=== PATIENT | male | born 1940 | race Caucasian/White ===

== ENCOUNTER → 2016-05-04 | Outpatient (REF) ==
[~2016-05-04] MED LIST: ACET-654 PO; ALBU83IN INH; AMLO5TAB2 PO; BENZ200C44 PO; COLA100C PO; FEVE650S3 PR; FLON1SPR; GUAIDM5UD PO; KEPP250T5 PO; KEPP500T6 PO; LEVA500T PO; LIDO5OI TOP; MIRT1TAB PO; MUCI600T34 PO; POTA20TA PO; TYLE500T78 PO
--- NOTE | 2016-05-04 09:18 | REP ---
AP view left shoulder , 05/04 16 Indication: left shoulder pain, 76 year old male Findings: Moderate hypertrophic and osteoarthritic changes are noted at acromioclavicular joint. There is significant narrowing of acromioclavicular joint. There is no acute fracture or dislocation of the left shoulder. Visualized portions of the left scapula and the left clavicle are intact Impression: Moderate hypertrophic and osteoarthritic changes at acromioclavicular joint. Left shoulder without fracture or displacement. Signed by Krystal Aragon MD 05/04/2016 09:10 A
[2016-05-04 15:13] LABS: MEAN CORPUSCULAR HEMOGLOBIN 32.4 pg (27.0-33.0); MEAN CORPUSCULAR HGB CONC 33.2 g/dl (32.0-36.5); MEAN CORPUSCULAR VOLUME 97.5 fl (80.0-96.0); RED CELL DISTRIBUTION WIDTH 17.5 % (11.5-14.5); WHITE BLOOD COUNT 3.7 K/mm3 (4.0-10.0)
[2016-05-04 15:42] LABS: ANION GAP 9 MEQ/L (8-16); BLOOD UREA NITROGEN 20 MG/DL (7-18); CALCIUM LEVEL 8.8 MG/DL (8.8-10.2); CARBON DIOXIDE LEVEL 26 MEQ/L (21-32); CHLORIDE LEVEL 102 MEQ/L (98-107); CREATININE FOR GFR 1.16 MG/DL (0.70-1.30); GLOMERULAR FILTRATION RATE > 60.0 (>42); GLUCOSE, FASTING 104 MG/DL (83-110); POTASSIUM SERUM 3.9 MEQ/L (3.5-5.1); SODIUM LEVEL 137 MEQ/L (136-145)
== END ==
PROVIDERS: ATTEND Internal Medicine
DX: J18.9 Pneumonia, unspecified organism (principal)

== ENCOUNTER → 2016-05-08 | Outpatient (REF) ==
[2016-05-08 10:11] LABS: MEAN CORPUSCULAR HEMOGLOBIN 32.7 pg (27.0-33.0); MEAN CORPUSCULAR HGB CONC 32.7 g/dl (32.0-36.5); MEAN CORPUSCULAR VOLUME 99.9 fl (80.0-96.0); RED CELL DISTRIBUTION WIDTH 16.2 % (11.5-14.5); WHITE BLOOD COUNT 3.2 K/mm3 (4.0-10.0)
[2016-05-08 10:29] LABS: ANION GAP 10 MEQ/L (8-16); BLOOD UREA NITROGEN 19 MG/DL (7-18); CARBON DIOXIDE LEVEL 27 MEQ/L (21-32); CHLORIDE LEVEL 103 MEQ/L (98-107); GLOMERULAR FILTRATION RATE > 60.0 (>42); GLUCOSE, FASTING 100 MG/DL (83-110); MAGNESIUM LEVEL 1.9 MG/DL (1.8-2.4); POTASSIUM SERUM 3.6 MEQ/L (3.5-5.1); SODIUM LEVEL 140 MEQ/L (136-145)
== END ==
PROVIDERS: ATTEND Internal Medicine
DX: I10 Essential (primary) hypertension (principal)

== ENCOUNTER 2016-05-10 09:48 | Inpatient (IN) | payer MEDICARE, OTHER ==
[~2016-05-10] VITALS: Ht 177.8 cm; Wt 78.3 kg
--- NOTE | 2016-05-10 10:37 | REP ---
CT HEAD WITHOUT CONTRAST: HISTORY: Subdural hematoma. Areas of decreased attenuation are present in the periventricular white matter. This represents small vessel ischemic disease. There is no intraparenchymal hemorrhage or mass. The ventricular system and cortical sulci are dilated consistent with minimal volume loss. Cavum septi pellucidi and vergae are present. A chronic subdural hematoma 1 cm in width is present over the right cerebral hemisphere. A very small amount of re-bleeding is present. There is mass effect with minimal midline shift to the left. There is no fracture. The visualized sinuses are clear. IMPRESSION: 1. Small vessel ischemic disease. 2. Minimal volume loss. 3. There is a 1 cm chronic subdural hematoma over the right cerebral hemisphere with minimal midline shift to the left. Results were discussed with Dr. Rico at 10:15 a.m. this date. Signed by Robert Fernández MD 05/10/2016 10:47 A
[2016-05-10 10:51] LABS: ANION GAP 7 MEQ/L (8-16); BLOOD UREA NITROGEN 21 MG/DL (7-18); CALCIUM LEVEL 8.6 MG/DL (8.8-10.2); CARBON DIOXIDE LEVEL 26 MEQ/L (21-32); CHLORIDE LEVEL 105 MEQ/L (98-107); CREATININE FOR GFR 1.23 MG/DL (0.70-1.30); GLOMERULAR FILTRATION RATE > 60.0 (>42); GLUCOSE, FASTING 112 MG/DL (83-110); POTASSIUM SERUM 3.6 MEQ/L (3.5-5.1); SODIUM LEVEL 138 MEQ/L (136-145)
[2016-05-10 10:53] LABS: BASO % 0.4 % (0.0-1.0); EOS # 0.2 K/mm3 (0.0-0.50); EOS % 6.9 % (0.0-3.0); LARGE UNSTAINED CELL # 0.2 K/mm3 (0.0-0.4); LARGE UNSTAINED CELL % 6.3 % (0.0-4.0); LYMPH # 0.6 K/mm3 (1.5-4.5); LYMPH % 22.9 % (24.0-44.0); MEAN CORPUSCULAR HEMOGLOBIN 32.9 pg (27.0-33.0); MEAN CORPUSCULAR HGB CONC 33.3 g/dl (32.0-36.5); MEAN CORPUSCULAR VOLUME 98.7 fl (80.0-96.0); MONO # 0.2 K/mm3 (0.0-0.8); MONO % 8.2 % (0.0-5.0); NEUTROPHILS # 1.5 K/mm3 (1.8-7.7); NEUTROPHILS % 55.3 % (36.0-66.0); PLATELET COUNT, AUTOMATED 156 k/mm3 (150-450); RED CELL DISTRIBUTION WIDTH 16.5 % (11.5-14.5); WHITE BLOOD COUNT 2.6 K/mm3 (4.0-10.0)
--- NOTE | 2016-05-10 11:19 | REP ---
Clinical: Cough . Comparison: 06/24/2013 . Findings: The mediastinum and cardiac silhouette are stable and within normal limits for portable technique. The lung valencia are clear without acute consolidation, effusion, or pneumothorax. Chronic changes to the left base again noted. Skeletal structures are intact. Impression: No acute cardiopulmonary process identified. Signed by Mane Fraser MD 05/10/2016 11:11 A
[2016-05-10] MEDS ORDERED: ONDANSETRON 4MG/2ML VIAL (J2405) IV PRN (12:30)
[2016-05-10] MEDS ORDERED: ACETAMINOPHEN TAB 650MG DOSE (2X325MG) PO PRN (12:30)
[2016-05-10] MEDS ORDERED: KEPP250T5 PO (13:20)
[2016-05-10] MEDS ORDERED: MUCI600T34 PO (13:20)
[2016-05-10] MEDS ORDERED: LIDO5OI TOP (13:20)
[2016-05-10] MEDS ORDERED: MIRT1TAB PO (13:20)
[2016-05-10] MEDS ORDERED: KEPP500T6 PO (13:20)
[2016-05-10] MEDS ORDERED: POTA20TA PO (13:28)
[2016-05-10] MEDS ORDERED: AMLO5TAB2 PO (13:28)
[2016-05-10] MEDS ORDERED: FLON1SPR (13:28)
[2016-05-10] MEDS ORDERED: GUAIDM5UD PO (13:28)
[2016-05-10] MEDS ORDERED: COLA100C PO (13:28)
[2016-05-10] MEDS ORDERED: TYLE500T78 PO (13:28)
[2016-05-10] MEDS ORDERED: FEVE650S3 PR (13:28)
[2016-05-10] MEDS ORDERED: ALBU83IN INH (13:28)
[2016-05-10] MEDS ORDERED: BENZ200C44 PO (13:28)
[2016-05-10] MEDS ORDERED: ACET-654 PO (13:28)
[2016-05-10 13:29] LABS: ABG BASE EXCESS 1.3 (-2.0-2.0); ABG HCO3 24.7 MEQ/L (22.0-26.0); ABG PARTIAL PRESSURE CO2 34.3 mmHg (35.0-45.0); ABG STANDARD HCO3 25.7 MEQ/L (22.0-26.0); ABG TOTAL CO2 25.8 MEQ/L (23.0-31.0); ABG pH (ARTERIAL) 7.476 UNITS (7.350-7.450)
[2016-05-10] MEDS ORDERED: LEVA500T PO (13:30)
[2016-05-10] MEDS ORDERED: LIDOCAINE VISCOUS 2% SOLN 15ML UDC SS PRN (14:45)
[2016-05-10] MEDS ORDERED: LORazepam 2 MG/ML VIAL (J2060) IV PRN (14:45)
[2016-05-10] MEDS ORDERED: ACETAMINOPHEN 650 MG SUPP PR PRN (15:00)
[2016-05-10] MEDS ORDERED: ACETAMINOPHEN 325 MG TAB PO PRN (15:00)
--- NOTE | 2016-05-10 15:20 | REP ---
MRI BRAIN WITHOUT CONTRAST: HISTORY: Subdural hematoma. COMPARISON: CT 05/10/2016 Areas of increased signal intensity on T2-weighted images are present in the periventricular and subcortical white matter. This represents small vessel ischemic disease. There is no intraparenchymal hemorrhage, infarct, or mass. The ventricular system and cortical sulci are dilated consistent with minimal volume loss. A very small amount of intraventricular hemorrhage is present. Cavum septum pellucidi and vergae are present. A late subacute to early chronic subdural hematoma 1 cm in width is present over the right cerebral hemisphere. There is mass effect with minimal midline shift to the left. The sinuses are clear. IMPRESSION: 1. Small vessel ischemic disease. 2. Minimal volume loss. 3. There is a 1 cm late subacute to early chronic subdural hematoma over the right cerebral hemisphere with minimal midline shift to the left. Signed by Robert Fernández MD 05/10/2016 03:25 P
--- NOTE | 2016-05-10 15:46 | HPE ---
DATE OF ADMISSION: 05/10/2016 PRIMARY CARE PROVIDER: Dr. Reggie Hurley INPATIENT HOSPITALIST ATTENDING: Dr. Champ Smalls CHIEF COMPLAINT: Lethargy HISTORY OF PRESENT ILLNESS: A 76-year-old male DNR [facility] resident with history of Waldenstrom macroglobulinemia, follows with Dr. Gamble, was seen yesterday with ahistory of plasmapheresis for hyperviscosity, chemotherapy in 2009, formerly followed with Dr. Rand, repeat chemotherapy in August 2010, completed in fall 2010, bone marrow testing 2013 demonstrating progression and treated with six cycles of rituxan and Treanda with Neulasta support 07/04/2013, subdural hematoma secondary to a fall with midline shift on chronic Keppra for seizure prophylaxis , single episode of paroxysmal atrial fibrillation 12/22/2013 with no repeat episode, resting tremors, seasonal allergic rhinitis, hypercholesterolemia, hypertension, presents to the emergency room for evaluation of increasing somnolence and lethargy, altered mental status for the past few days. This past week, according to the family, the patient has had a 13-pound weight loss due to decreased appetite and decreased oral intake. He has been increasingly lethargic and somnolent but continued to take his Keppra. He otherwise denied any nausea, vomiting, abdominal pain, chest pain, pressure or tightness, shortness of breath, lightheadedness, fever, chills, upper or lower extremity numbness or tingling. Since his subarachnoid bleed 04/21/2016, the patient has had persistent weakness and deconditioning despite rehabilitation and continues to have left lower extremity weakness compared to the right lower extremity. Per the family, the patient is arousable but much more lethargic and obtunded. He is able to answer questions appropriately and appears to be oriented. Concerns for progression of Waldenstrom was raised as well as medication-induced lethargy. Repeat CT of the head in the emergency room (ER) shows stable chronic changes from previous subdural hematoma with a minimal midline shift to the left measuring 1 cm, appears to be old blood, small vessel ischemic disease and very minimal volume loss. Workup included CBC with chronic leukopenia and anemia and normal metabolic panel. Hospitalist service was called for admission for evaluation of the patient's lethargy, acute mental status change. PAST MEDICAL HISTORY: 1. Waldenstrom's macroglobulinemia. 2. Paroxysmal atrial fibrillation, one episode in 2013 with no repeat. 3. Seizures. 4. Subdural hematoma in March 2016. 5. T3 compression fracture. 6. Hypertension. 7. Hypercholesterolemia. 8. Retinal detachment repair, laser retinal surgery on the left. 9. Total hip replacement. 10. Seasonal allergic rhinitis. PAST SURGICAL HISTORY: 1. Colonoscopy in November 1998. 2. Retinal detachment repair, laser retinal surgery on the left 2008. 3. Total hip replacement secondary to injury on ice in March 2013. ALLERGIES: No known drug allergies. HOME MEDICATIONS: - Keppra 500 mg twice a day, currently changed to 250 in the morning and 500 in the evening - Norvasc 5 mg daily - potassium chloride 20 mEq daily - Levaquin 500 mg daily SOCIAL HISTORY: Former smoker of tobacco. 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 No alcohol use. Currently, DO NOT INTUBATE/DO NOT RESUSCITATE, prison resident. Healthcare proxy is daughter, Ayaka Campa, phone number [phone] and home number is [phone]. REVIEW OF SYSTEMS: Per the history of present illness. Twelve-point system otherwise negative. PHYSICAL EXAMINATION: VITAL SIGNS: Blood pressure 111/60, pulse 88, respiratory rate 18, temperature 100.3, 96% on two liters nasal cannula. GENERAL: The patient is lethargic but arousable. He answers questions appropriately. He is awake, alert, and oriented to time, place, and person. He stated that it is 2017, he is at [facility]. HEENT: Pupils are round and reactive. Extraocular muscles are intact. Normocephalic, atraumatic. The patient has a dry, beefy looking tongue with some mouth ulcers, non-vesicular. NECK: No jugular venous distention or thyromegaly. SKIN: The patient has some ecchymotic area around the right eye, right clavicle, anterior right upper chest, and right arm. LUNGS: Clear to auscultation. No wheezes, rales, or rhonchi. HEART: S1, S2, sinus rhythm. No murmurs, rubs, or gallops. ABDOMEN: Soft, nontender, nondistended. EXTREMITIES: No pitting edema. LABORATORY DATA: White count 2.6, hemoglobin 8.4, hematocrit 25, platelet count 156. Arterial blood gas: CO2 34, pH 7.4. Sodium 138, potassium 3.6, chloride 105, bicarbonate 26, BUN 21, creatinine 1.23 , glucose of 112, ammonia of 41, calcium of 8.6, levetiracetam level is pending. MICROBIOLOGY: Two sets of blood cultures are pending. IMAGING STUDIES: Chest x-ray shows no acute cardiopulmonary process. CT of the head shows chronic subdural hematoma 1 cm with minimal midline shift to the left, small vessel ischemic disease. MRI of the brain is pending. ASSESSMENT AND PLAN: This is a 76-year-old male with history of Waldenstrom macroglobulinemia, paroxysmal atrial fibrillation with single episode, not on anticoagulation or rate controlled medication, hypertension not on medication due to low blood pressures, hypercholesterolemia, subdural hematoma 04/21/2016 on seizure prophylaxis, compression fracture T3, retinal detachment, right total hip replacement secondary to slipping on some ice, presents to the emergency room with a few day of history of increasing somnolence thought to be secondary to Keppra. The patient had been started on Levaquin at the prison for a presumed pneumonia with chest x-ray being negative. He does have low-grade temperature. The patient will be admitted as inpatient for two midnights. Admitted to the hospitalist service, attending physician Dr. Champ Smalls for the following issues: 1. Acute encephalopathy, most likely multifactorial. The patient's Keppra will be held overnight until levels are available. Ativan as needed for breakthrough seizures. EEG in the morning. We will rule out metabolic causes. The patient's ammonia level is slightly elevated. We will give a small of lactulose and recheck levels in the morning. Arterial blood gas appears to be normal. Glucose is normal. CT of the brain is unremarkable. We will obtain an MRI of the brain to look for other etiology. Due to low-grade temperature, we will check urinalysis (UA), urine culture and sensitivity to rule out urinary tract infection as the cause for the patient's altered mental status. Dr. Gamble, oncology/florist supplies salesperson, has been consulted to rule out Waldenstrom macroglobulinemia progression causing confusion. We have discussed with the patient that plasmapheresis is not available at [facility] and they were agreeable to proceeding with admission. 2. Waldenstrom's macroglobulinemia. Dr. Tye sahu has been consulted for management. 3. Low-grade fever. We will obtain a panculture, UA, urine culture and sensitivity, influenza a and b rapid antigen. Chest x-ray is unremarkable. The patient denies any dysuria,urgency, or frequency. Pt has a chronic cough and has been given levaquin at the prison, which we will continue until cultures are negative. 4. Chronic leukopenia and anemia, stable. No acute indication for red blood cell transfusion. 5. 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 appears to be stable on repeat CT. Neurologic checks every four hours.Pt and family have requested discontinuation of keppra. Per neurologist incident response engineer, dr. Braakat, alternatives will be vimpat or dilantin. 6. History of seizures status post chronic subdural hematoma. Ativan as needed. The patient's family and the patient have requested discontinuation of the Keppra due to increased sedation. EEG in the morning. Vimpat or dilantin as alternative if EEG suggestive of epilepsy. Ok to be off AED for the next 24hrs per neurology, Dr. Barakat who will see the patient in consult. 7. Mouth ulcers. Viscous lidocaine as needed, Magic mouthwash. 8. Hypertension. Currently on no medications due to low blood pressure. 9. Hypercholesterolemia. Check lipid profile in the morning. 10. Compression fracture, stable. No complaints of pain at this time. 11. History of paroxysmal atrial fibrillation. Currently in sinus rhythm. 12. Deep vein thrombosis (DVT) prophylaxis with compression stockings. Avoid anticoagulants due to history of subdural hematoma. The patient will be assigned to Dr. Champ Smalls at 10:00 p.m. on 03/10/2017 and he will assume care of this patient on 05/11/2016 at 7:00 a.m. SIXTO
[2016-05-10 16:00] VITALS: BP 136/75
[2016-05-10] MEDS ORDERED: ACETAMINOPHEN 500 MG TAB PO SCH (16:00)
[2016-05-10] MEDS ORDERED: LACTULOSE 20 GM/30 ML SYRUP UD PO ONE (16:00)
[2016-05-10] MEDS: ALBUTEROL SULFATE 2.5 MG/0.5 ML INH NEB SOLN INH SCH ×2 (17:00→20:59)
[2016-05-10] MEDS ORDERED: LIDOCAINE 5% OINT 30 GM TOP SCH (17:00)
[2016-05-10] MEDS: MAGIC MOUTHWASH SUSPENSION BTL SSP SCH (17:30)
[2016-05-10 19:45] VITALS: BP 131/77
--- NOTE | 2016-05-10 19:56 | EDDOCDS ---
Physician Documentation [facility] Name: Sebastián Manning Age: 76 yrs Sex: Male : 1940 Arrival Date: 05/10/2016 Time: 09:48 Bed 20 Private MD: Disposition: 05/10 12:19 Critical Care: Critical care not applicable. pc Disposition: 05/10/16 12:23 Hospitalization ordered by Shruti Villavicencio for Inpatient Admission. Preliminary diagnosis are Altered mental status, unspecified, Adverse effect of other antiepileptic and sedative-hypnotic drugs, Traumatic subdural hemorrhage - resolving, Waldenstr m macroglobulinemia. - Bed requested for PCU. - Status is Inpatient Admission. mgs - Condition is Stable. - Problem is new. - Symptoms have improved. HPI: 11:34 This 76 yrs old Male presents to ER via Ambulance with complaints of Altered pc Mental Status. 11:34 The history is obtained from the patient, the patient's family/friend, [facility]. He has been increasingly tired, with a cough and poor oral intake for a few days. He had a fall with a SDH weeks ago, admitted to [facility] for observation and stable since . He was sent for evaluation, with concerns for hyperviscosity due to his Waldenstrom's. Historical: - Allergies: no known allergies; - Home Meds: 1. Keppra 500 mg oral tab 1 tab 2 times per day (Last dose: 05/10/2016 08:00) 2. Norvasc 5 mg Oral tab 1 tab once daily (Last dose: 05/10/2016 08:00) 3. potassium chloride 20 mEq Oral TbER 1 tab once daily (Last dose: 05/10/2016 08:00) 4. Levaquin 500 mg Oral tab 1 tab once daily (Last dose: 05/10/2016 08:00) - PMHx: Waldenstrom Macroglobulinemia; Atrial Fib; Seizures; Subarachnoid Bleed (April 21, 2016); compression Fx T3; Hypertension; - PSHx: Colonoscopy; retinal reattachment; right total hip; - The history from nurses notes was reviewed: and I agree with what is documented. - Social history: Smoking status: Patient states former smoker of tobacco. No barriers to communication noted, Speaks appropriately for age. - : The pt / caregiver states he / she is not on anticoagulants. Home medication list is obtained from the facility MAR. - Exposure Risk Screening:: None identified. - Immunization history:: All immunizations up-to-date. - Family history: Not pertinent. - Social history:: the patient is a non-smoker, the patient does not drink alcohol. ROS: 11:34 hard of hearing. pc 11:34 All systems are negative except as listed. Exam: 11:34 General Appearance: lethargic. pc 11:34 EENT: normal eye inspection, ears, nose and throat normal, mucous membranes dry. 11:34 Neck: The exam reveals no acute abnormalities. ROM is normal and painless. No nuchal rigidity is noted.. 11:34 Respiratory: no respiratory distress, normal breath sounds. 11:34 CVS: regular pulse rate, regular rhythm, normal S1 and S2, no murmurs, strong peripheral pulses. 11:34 Abdomen: soft, non-tender, no organomegaly, normal bowel sounds. 11:34 Back: normal inspection. 11:34 Skin: skin color is normal, warm, dry. 11:34 Extremities: multiple areas of ecchymosis . 11:34 Neuro: oriented x 3, cranial nerves normal as tested, no motor deficits, no sensory deficits. Vital Signs: 09:57 BP 111 / 60; Pulse 88; Resp 18; Temp 100.3(TE); Pulse Ox 96% on 2 lpm NC; Pain 0/10; dem1 MDM: 09:52 CT Head Without Contrast Ordered. EDMS 09:56 IV Saline Lock ordered. pc 09:57 CBC with Diff Ordered. EDMS 09:57 MED Profile Ordered. EDMS 10:17 Data reviewed: The patient's [facility] records were accessed, as they were informed. pc 10:30 -Blood Culture (Adults Only), peripheral from different site, or from device/port/PICC pc etc. if present ordered. 10:31 Chest, 1 View Ordered. EDMS 10:32 -Blood Culture Ordered. EDMS 10:34 -Blood Culture (Adults Only), peripheral from different site, or from device/port/PICC deg etc. if present complete. 10:35 BLOOD CULTURES Ordered. EDMS 11:15 CBC with Diff Reviewed. pc 11:15 MED Profile Reviewed. pc 11:15 CT Head Without Contrast Reviewed. pc 11:34 Differential Diagnosis: AMS; dehydration; on Keppra; recent SDH. Plan: CT, CXR, labs. pc 12:18 [place] [place] was scanned into [employer] and attached to record. jp5 12:18 Financial registration complete. jp5 12:18 Data reviewed: old medical records, vital signs, nurses notes, EKG(s), lab test pc results, all radiology studies and available results. 12:19 Keppra (short red top tube) Ordered. EDMS 12:19 ECG WITH READING ER PHYS+CARDIAG ordered. EDMS 12:19 Test interpretation: LAB - all labs as ordered have been reviewed, interpreted and pc considered in the overall management of the clinical presentation; X-RAY - interpreted by Radiologist and personally reviewed, 1 view chest no acute disease, interpreted by Radiologist and personally reviewed, discussed with Radiologist, Head CT; resolving right SDH with no change to midline shift. Physician consultation: Dr. Jacky Gibson regarding patient's condition, and he agrees with the CT reading and will see in consult if Hospitalist requests. 12:19 Physician consultation: Dr. Omi Gamble regarding patient's condition, and he advises pc that hydrating overnight, withholding Keppra and if no change, will require transfer for plasmapheresis . 12:19 The patient has been re-examined and re-evaluated. The patient's symptoms have mildly pc improved after treatment. Physician consultation: Dr. Shruti Villavicencio was contacted at 12:21, regarding admission. Disposition: The historical points, examination findings, and any diagnostic results supporting the provided diagnosis, were discussed with the patient or legal guardian. The need for further work-up and/or treatment in the hospital was explained. 12:21 BED REQUEST+ADM ordered. EDMS 12:22 NS 0.9% 500 ml IV at bolus once ordered. pc 12:26 AMMONIA Ordered. EDMS 12:26 ARTERIAL BLOOD GAS Ordered. EDMS 12:26 MRI Brain without Contrast Ordered. EDMS 12:29 Test interpretation: EKG. pc 12:46 PHYSICAL THERAPY EVAL & TREAT ordered. EDMS 12:46 Admission / Observation Status ordered. EDMS 12:47 NPO DIET ordered. EDMS 12:48 URINALYSIS Ordered. EDMS 14:42 URINALYSIS Ordered. EDMS 14:42 URINE CULTURE Ordered. EDMS 15:01 PROLACTIN Ordered. EDMS 15:52 INFLUENZA A&B RAPID ANTIGEN Ordered. EDMS 19:31 BASIC METABOLIC PROFILE Ordered. EDMS 19:31 CBC WITH DIFFERENTIAL Ordered. EDMS EC:29 Rate is 80 beats/min. Rhythm is regular, Normal Sinus Rhythm with 1st degree heart pc block. Left axis deviation noted. QRS is negative in leads II, aVF. MI interval is normal. QRS interval is normal. QT interval is normal. No Q waves. T waves are Normal. Clinical impression: Normal Sinus Rhythm and 1st degree heart block. Administered Medications: 12:33 Drug: NS 0.9% 500 ml [sodium chloride 0.9 % intravenous solution] Route: IV; Rate: ml6 bolus; Site: left antecubital; 14:45 Follow up: IV Status: Completed infusion; Infusion discontinued; IV Intake: 500ml ml6 Signatures: Dispatcher [employer] EDNV Kyle Rico MD MD pc Murray, Denise, Reservations Manager Unit deg Zeeshan Oseguera RN RN dwg Lowe, Matthew, RN RN ml6 Zev Cervantes,Treasure Luz RN jp5 The chart was reviewed and I authenticate all verbal orders and agree with the evaluation and treatment provided.Attachments: 12:18 [facility] Payment Agreement [email or web address]
--- NOTE | 2016-05-10 19:56 | EDDOCDS ---
Nurse's Notes [facility] Name: Sebastián Manning Age: 76 yrs Sex: Male : 1940 Arrival Date: 05/10/2016 Time: 09:48 Bed 20 Private MD: Diagnosis: Altered mental status, unspecified;Adverse effect of other antiepileptic and sedative-hypnotic drugs;Traumatic subdural hemorrhage-resolving;Waldenstr m macroglobulinemia Presentation: 05/10 09:57 Presenting complaint: EMS states: sent from [facility] due to increased lethargy. Adult Sepsis ml6 Screening: The patient does not have new or worsening altered mentation. Patient's respiratory rate is less than 22. Systolic blood pressure is greater than 100. Patient has a qSOFA score of 0- Negative Sepsis Screen. Suicide/Homicide risk assessment- the patient denies having any suicidal and/or homicidal ideations and does not present with any other emotional, behavioral or mental health complaints. 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 Transition of care: patient was not received from another setting of care. 09:57 Acuity: AMA Level 3 ml6 09:57 Method Of Arrival: Ambulance ml6 Triage Assessment: 09:57 General: Appears in no apparent distress, Behavior is appropriate for age, cooperative. ml6 Pain: Denies pain. The patient is triaged at the bedside. See Assessment in Nurses Notes section of ED record. Neurological: Level of Consciousness is awake, alert, Oriented to person, place, Cigarette Filter Inspector are equal bilaterally Moves all extremities. Speech is normal, Facial symmetry appears normal, Pupils are PERRLA. Cardiovascular: No deficits noted. Capillary refill < 3 seconds is brisk in bilateral fingers toes Heart tones S1 S2 present. Respiratory: No deficits noted. Airway is patent Respiratory effort is even, unlabored, Respiratory pattern is regular, symmetrical, Breath sounds are clear bilaterally. GI: No deficits noted. Abdomen is flat, non- distended. : No deficits noted. Historical: - Allergies: no known allergies; - Home Meds: 1. Keppra 500 mg oral tab 1 tab 2 times per day (Last dose: 05/10/2016 08:00) 2. Norvasc 5 mg Oral tab 1 tab once daily (Last dose: 05/10/2016 08:00) 3. potassium chloride 20 mEq Oral TbER 1 tab once daily (Last dose: 05/10/2016 08:00) 4. Levaquin 500 mg Oral tab 1 tab once daily (Last dose: 05/10/2016 08:00) - PMHx: Waldenstrom Macroglobulinemia; Atrial Fib; Seizures; Subarachnoid Bleed (April 21, 2016); compression Fx T3; Hypertension; - PSHx: Colonoscopy; retinal reattachment; right total hip; - The history from nurses notes was reviewed: and I agree with what is documented. - Social history: Smoking status: Patient states former smoker of tobacco. No barriers to communication noted, Speaks appropriately for age. - : The pt / caregiver states he / she is not on anticoagulants. Home medication list is obtained from the facility JUN. - Exposure Risk Screening:: None identified. - Immunization history:: All immunizations up-to-date. - Family history: Not pertinent. - Social history:: the patient is a non-smoker, the patient does not drink alcohol. Screenin:28 Screening information is obtained from the patient. Fall risk: At risk due to age. ml6 Assistance ADL's: requires no assistance with activities of daily living. Abuse/DV Screen: The patient / caregiver reports he/she is: not in a situation that causes fear, pain or injury. Nutritional screening: No deficits noted. Advance Directives: Currently, there is no health care proxy. home support is adequate. Assessment: 09:57 General: see triage assessment'. ml6 11:00 Reassessment: Patient appears in no apparent distress at this time. Patient denies pain ml6 at this time. Patient states feeling better. Patient states symptoms have improved. patient sleeping intermittently, states fatigue, denies pain or discomfort, family at bedside awaiting test result. 11:00 Derm: Bruising that is dark purple, yellow, on right eye, right clavicle, anterior ml6 aspect of right upper chest and right arm. 12:00 Reassessment: Patient appears in no apparent distress at this time. Patient denies pain ml6 at this time. Patient states feeling better. Patient states symptoms have improved. patient sleeping, agitation noticeably reduced. 13:00 General: Appears in no apparent distress, Behavior is appropriate for age, cooperative. ml6 Pain: Denies pain. Neurological: No deficits noted. Level of Consciousness is awake, alert, Oriented to person, place, time. Cardiovascular: No deficits noted. Capillary refill < 3 seconds is brisk in bilateral fingers toes. Respiratory: No deficits noted. 14:00 Reassessment: Patient appears in no apparent distress at this time. Patient denies pain ml6 at this time. Patient states feeling better. Patient states symptoms have improved. patient sleeping soundly resp unlabored. 19:52 General: Appears in no apparent distress, Behavior is appropriate for age, cooperative. mgs Pain: Denies pain. Neurological: Level of Consciousness is awake, alert, Oriented to person, place, time, Cigarette Filter Inspector are equal bilaterally Moves all extremities. Speech is normal, Facial symmetry appears normal, Pupils are PERRLA. Cardiovascular: Capillary refill < 3 seconds. Respiratory: Airway is patent Respiratory effort is even, unlabored, Respiratory pattern is regular, symmetrical. Derm: Bruising that is yellow, on right eye. Vital Signs: 09:57 BP 111 / 60; Pulse 88; Resp 18; Temp 100.3(TE); Pulse Ox 96% on 2 lpm NC; Pain 0/10; dem1 Vitals: 09:57 Log In Time N/A - ambulance arrival. [facility] ED Course: 09:49 Patient visited by Emely Cain, Encyclopedia Research Worker. deg 09:49 Patient moved to Waiting deg 09:50 Kyle Rico MD is Attending Physician. pc 09:50 Patient moved to 10 [facility] 09:58 Triage Initiated ml6 09:58 Pt greeted and oriented to ED. Patient advised of names of staff involved in care, [facility] location of call russo, wait times and NPO status. Patient has correct armband on for positive identification. Placed in gown. Bed in low position. Call light in reach. Side rails up X2. engine monitor on. Pulse ox on. NIBP on. 09:59 Patient visited by Howard Barragan. dem1 10:06 Patient visited by Kyle Rico MD. pc 10:08 Inserted peripheral IV: 20gauge IV in left antecubital area and blood collected. ml6 Patient tolerated the procedure well. No procedures done that require assistance. Labs drawn. (by ED staff). Sent per order to lab. 10:31 MED Profile Sent. ml6 10:31 CBC with Diff Sent. ml6 10:34 Patient visited by Zev Fraser RN. ml6 11:02 CT Head Without Contrast Returned. EDMS 11:04 Patient visited by Zev Fraser, DIMA. ml6 11:30 Patient visited by Zev Fraser, DIMA. ml6 11:41 Chest, 1 View Returned. EDMS 12:08 Patient visited by Alma Oakes PCA. ls3 12:18 [facility] Payment Agreement was scanned into DearJane and attached to record. jp5 12:23 Shruti Villavicencio is Hospitalizing Provider. pc 12:26 Patient visited by Bettina Hernandez PCA. ct3 12:26 EKG done. (by ED staff). Reviewed by Kyle Rico MD. ct3 13:08 Patient moved to Admit Hold jo3 13:27 ARTERIAL BLOOD GAS Sent. cs15 14:03 Patient moved to MRI ml6 14:59 Patient moved to Admit Hold dwg 15:59 MRI Brain without Contrast Returned. EDMS 18:49 Inserted. nr1 19:00 Patient moved to 20 dwg 19:02 Patient visited by Kaleb Cosby PCA. kb5 19:45 Zev Cervantes,DIMA is Primary Nurse. mgs 19:52 The patient / caregiver is instructed regarding the plan of care and ED course. mgs Administered Medications: 12:33 Drug: NS 0.9% 500 ml [sodium chloride 0.9 % intravenous solution] Route: IV; Rate: ml6 bolus; Site: left antecubital; 14:45 Follow up: IV Status: Completed infusion; Infusion discontinued; IV Intake: 500ml ml6 Intake: 14:45 IV: 500.00ml; Total: 500.00ml. ml6 RT: 13:27 ABG's drawn from left radial artery allens test done and positive pressure held for 5 cs15 minutes no bleeding noted pressure bandage applied specimen sent pt. tolerated well. Order Results: Lab Order: CBC with Diff; SPEC'M 05/10/16 10:25 Test: WHITE BLOOD COUNT; Value: 2.6; Range: 4.0-10.0; Abnormal: Below low normal; Units: K/mm3; Status: F Test: RED BLOOD COUNT; Value: 2.54; Range: 4.30-6.10; Abnormal: Below low normal; Units: M/mm3; Status: F Test: HEMOGLOBIN; Value: 8.4; Range: 14.0-18.0; Abnormal: Below low normal; Units: g/dl; Status: F Test: HEMATOCRIT; Value: 25.1; Range: 42.0-52.0; Abnormal: Below low normal; Units: %; Status: F Test: MEAN CORPUSCULAR VOLUME; Value: 98.7; Range: 80.0-96.0; Abnormal: Above high normal; Units: fl; Status: F Test: MEAN CORPUSCULAR HEMOGLOBIN; Value: 32.9; Range: 27.0-33.0; Units: pg; Status: F Test: MEAN CORPUSCULAR HGB CONC; Value: 33.3; Range: 32.0-36.5; Units: g/dl; Status: F Test: RED CELL DISTRIBUTION WIDTH; Value: 16.5; Range: 11.5-14.5; Abnormal: Above high normal; Units: %; Status: F Test: PLATELET COUNT, AUTOMATED; Value: 156; Range: 150-450; Units: k/mm3; Status: F Test: NEUTROPHILS %; Value: 55.3; Range: 36.0-66.0; Units: %; Status: F Test: LYMPH %; Value: 22.9; Range: 24.0-44.0; Abnormal: Below low normal; Units: %; Status: F Test: MONO %; Value: 8.2; Range: 0.0-5.0; Abnormal: Above high normal; Units: %; Status: F Test: EOS %; Value: 6.9; Range: 0.0-3.0; Abnormal: Above high normal; Units: %; Status: F Test: BASO %; Value: 0.4; Range: 0.0-1.0; Units: %; Status: F Test: LARGE UNSTAINED CELL %; Value: 6.3; Range: 0.0-4.0; Abnormal: Above high normal; Units: %; Status: F Test: NEUTROPHILS #; Value: 1.5; Range: 1.8-7.7; Abnormal: Below low normal; Units: K/mm3; Status: F Test: LYMPH #; Value: 0.6; Range: 1.5-4.5; Abnormal: Below low normal; Units: K/mm3; Status: F Test: MONO #; Value: 0.2; Range: 0.0-0.8; Units: K/mm3; Status: F Test: EOS #; Value: 0.2; Range: 0.0-0.50; Units: K/mm3; Status: F Test: BASO #; Value: 0.0; Range: 0.0-0.2; Units: K/mm3; Status: F Test: LARGE UNSTAINED CELL #; Value: 0.2; Range: 0.0-0.4; Units: K/mm3; Status: F Lab Order: MED Profile; SPEC'M 05/10/16 10:25 Test: GLUCOSE, FASTING; Value: 112; Range: 83-110; Abnormal: Above high normal; Units: MG/DL; Status: F Test: BLOOD UREA NITROGEN; Value: 21; Range: 7-18; Abnormal: Above high normal; Units: MG/DL; Status: F Test: CREATININE FOR GFR; Value: 1.23; Range: 0.70-1.30; Units: MG/DL; Status: F Test: GLOMERULAR FILTRATION RATE; Value: > 60.0; Range: >42; Status: F Test: SODIUM LEVEL; Value: 138; Range: 136-145; Units: MEQ/L; Status: F Test: POTASSIUM SERUM; Value: 3.6; Range: 3.5-5.1; Units: MEQ/L; Status: F Test: CHLORIDE LEVEL; Value: 105; Range: 98-107; Units: MEQ/L; Status: F Test: CARBON DIOXIDE LEVEL; Value: 26; Range: 21-32; Units: MEQ/L; Status: F Test: ANION GAP; Value: 7; Range: 8-16; Abnormal: Below low normal; Units: MEQ/L; Status: F Test: CALCIUM LEVEL; Value: 8.6; Range: 8.8-10.2; Abnormal: Below low normal; Units: MG/DL; Status: F Test Note: ; Units are mL/min/1.73 m2 Chronic Kidney Disease Staging per NKF: Stage I & II GFR >=60 Normal to Mildly Decreased Stage III GFR 30-59 Moderately Decreased Stage IV GFR 15-29 Severely Decreased Stage V GFR <15 Very Little GFR Left ESRD GFR <15 on WORK CHECKER Lab Order: AMMONIA; SPEC'05/10/16 13:33 Test: AMMONIA; Value: 41; Range: <32; Abnormal: Above high normal; Units: uMOL/L; Status: F Lab Order: ARTERIAL BLOOD GAS; SPEC'M 05/10/16 13:25 Test: ABG pH (ARTERIAL); Value: 7.476; Range: 7.350-7.450; Abnormal: Above high normal; Units: UNITS; Status: F Test: ABG PARTIAL PRESSURE CO2; Value: 34.3; Range: 35.0-45.0; Abnormal: Below low normal; Units: mmHg; Status: F Test: ABG PARTIAL PRESSURE O2; Value: 106.0; Range: 75.0-100.0; Abnormal: Above high normal; Units: mmHg; Status: F Test: ABG TOTAL CO2; Value: 25.8; Range: 23.0-31.0; Units: MEQ/L; Status: F Test: ABG HCO3; Value: 24.7; Range: 22.0-26.0; Units: MEQ/L; Status: F Test: ABG BASE EXCESS; Value: 1.3; Range: -2.0-2.0; Status: F Test: ABG STANDARD HCO3; Value: 25.7; Range: 22.0-26.0; Units: MEQ/L; Status: F Test: ABG O2 SATURATION; Value: 98.2; Range: 95.0-99.0; Units: %; Status: F Lab Order: PROLACTIN; SPEC'M 05/10/16 10:25 Test: PROLACTIN; Value: 8.3; Range: 2.1-17.7; Units: NG/ML; Status: F Radiology Order: CT Head Without Contrast Test: CT Head Without Contrast REASON FOR EXAMINATION: SDH; CT HEAD WITHOUT CONTRAST:; ; HISTORY: Subdural hematoma.; ; Areas of decreased attenuation are present in the periventricular white matter.; This represents small vessel ischemic disease. There is no intraparenchymal; hemorrhage or mass. The ventricular system and cortical sulci are dilated; consistent with minimal volume loss. Cavum septi pellucidi and vergae; are present. A chronic subdural hematoma 1 cm in width is present over the; right cerebral hemisphere. A very small amount of re-bleeding is present. There; is mass effect with minimal midline shift to the left. There is no fracture.; The visualized sinuses are clear.; ; IMPRESSION:; ; 1. Small vessel ischemic disease.; ; 2. Minimal volume loss.; ; 3. There is a 1 cm chronic subdural hematoma over the right cerebral hemisphere; with minimal midline shift to the left.; ; Results were discussed with Dr. Rico at 10:15 a.m. this date.; ; ; Signed by; Robert Fernández MD 05/10/2016 10:47 A; Radiology Order: Chest, 1 View Test: Chest, 1 View REASON FOR EXAMINATION: Cough; Clinical: Cough .; ; Comparison: 06/24/2013 .; ; Findings:; The mediastinum and cardiac silhouette are stable and within normal limits for; portable technique. The lung valencia are clear without acute consolidation,; effusion, or pneumothorax. Chronic changes to the left base again noted.; Skeletal structures are intact.; ; Impression:; No acute cardiopulmonary process identified.; ; ; Signed by; Mane Fraser MD 05/10/2016 11:11 A; Radiology Order: MRI Brain without Contrast Test: MRI Brain without Contrast REASON FOR EXAMINATION: somnolence SDH waldenstrom's macrogammaglobulinemia; MRI BRAIN WITHOUT CONTRAST:; ; HISTORY: Subdural hematoma.; ; COMPARISON: CT 05/10/2016; ; Areas of increased signal intensity on T2-weighted images are present in the; periventricular and subcortical white matter. This represents small vessel; ischemic disease. There is no intraparenchymal hemorrhage, infarct, or mass. The; ventricular system and cortical sulci are dilated consistent with minimal volume; loss. A very small amount of intraventricular hemorrhage is present. Cavum septum; pellucidi and vergae are present. A late subacute to early chronic subdural; hematoma 1 cm in width is present over the right cerebral hemisphere. There is; mass effect with minimal midline shift to the left. The sinuses are clear.; ; IMPRESSION:; ; 1. Small vessel ischemic disease.; ; 2. Minimal volume loss.; ; 3. There is a 1 cm late subacute to early chronic subdural hematoma over the; right cerebral hemisphere with minimal midline shift to the left.; ; ; Signed by; Robert Fernández MD 05/10/2016 03:25 P; Outcome: 12:23 Decision to Hospitalize by Provider. pc 19:51 Discharge Assessment: Patient awake, alert and oriented x 3. No cognitive and/or mgs functional deficits noted. Patient verbalized understanding of disposition instructions. patient administered narcotics - no. The following High Risk Discharge criteria are identified: None. Admitted to PCU accompanied by nurse, accompanied by tech, family with patient, via stretcher, on monitor, with chart. Condition: stable. CT Study completed. Property sent home with patient. 19:54 Patient left the ED. mgs Signatures: Dispatcher [employer] EDMS Kyle Rico MD MD pc Emely Cain, Encyclopedia Research Worker Unit deg Zeeshan Oseguera, RN RN Frannie Vance, RN RN [facility] Nikkie Owusu,RN RN jo3 Kaleb Cosby, FUNCTIONAL MENTAL DISABILITY TEACHER FUNCTIONAL MENTAL DISABILITY TEACHER kb5 Zev Fraser, RN RN ml6 Bettina Hernandez, FUNCTIONAL MENTAL DISABILITY TEACHER FUNCTIONAL MENTAL DISABILITY TEACHER ct3 Steven Barragania dem1 Zev Cervantes,DIMA CH mgs Kirti AndersonRN RN nr1 Treasure Garcia jp5 Alma Oakes, FUNCTIONAL MENTAL DISABILITY TEACHER FUNCTIONAL MENTAL DISABILITY TEACHER ls3 Jorge Pérez,RT RT cs15 Corrections: (The following items were deleted from the chart) 11:30 11:00 Reassessment: Patient appears in no apparent distress at this time. Patient ml6 denies pain at this time. Patient states feeling better. Patient states symptoms have improved. patient sleeping intermittently, states fatigue, denies pain or discomfort, family at bedside awaiting test result. ml6 MTDD
[2016-05-10 20:13] VITALS: BP 144/75
[2016-05-10] MEDS ORDERED: D5W/0.45% SODIUM CHLORIDE 1,000 ML IV SCH (21:00)
[2016-05-10] MEDS: guaiFENesin ER 600 MG TAB PO SCH (21:55)
[2016-05-10] MEDS: DOCUSATE SODIUM 100 MG CAP PO SCH (21:55)
[2016-05-10 23:59] VITALS: BP 124/73
[2016-05-11] MEDS ORDERED: SLF 3 ML SYR IV PRN (02:00)
[2016-05-11 04:46] VITALS: BP 114/73
[2016-05-11] MEDS: LevoFLOXacin 500 MG TABLET PO SCH (05:13)
[2016-05-11] MEDS: SODIUM CHLORIDE NASAL 0.65% SPRAY BTL (OCEAN) PRN (05:16)
[2016-05-11] MEDS: SLF 3 ML SYR IV SCH ×3 (05:17→21:27)
[2016-05-11 06:12] LABS: ANION GAP 8 MEQ/L (8-16); BLOOD UREA NITROGEN 18 MG/DL (7-18); CALCIUM LEVEL 8.5 MG/DL (8.8-10.2); CARBON DIOXIDE LEVEL 25 MEQ/L (21-32); CHLORIDE LEVEL 105 MEQ/L (98-107); GLOMERULAR FILTRATION RATE > 60.0 (>42); GLUCOSE, FASTING 107 MG/DL (83-110); POTASSIUM SERUM 3.5 MEQ/L (3.5-5.1); SODIUM LEVEL 138 MEQ/L (136-145)
[2016-05-11 06:15] LABS: BASO % 0.7 % (0.0-1.0); EOS # 0.2 K/mm3 (0.0-0.50); LARGE UNSTAINED CELL # 0.3 K/mm3 (0.0-0.4); LYMPH # 1.3 K/mm3 (1.5-4.5); LYMPH % 31.5 % (24.0-44.0); MEAN CORPUSCULAR HEMOGLOBIN 31.5 pg (27.0-33.0); MEAN CORPUSCULAR HGB CONC 31.8 g/dl (32.0-36.5); MEAN CORPUSCULAR VOLUME 99.1 fl (80.0-96.0); MONO # 0.2 K/mm3 (0.0-0.8); MONO % 5.6 % (0.0-5.0); NEUTROPHILS # 1.6 K/mm3 (1.8-7.7); NEUTROPHILS % 48.3 % (36.0-66.0); PLATELET COUNT, AUTOMATED 157 k/mm3 (150-450); RED CELL DISTRIBUTION WIDTH 17.7 % (11.5-14.5); WHITE BLOOD COUNT 3.2 K/mm3 (4.0-10.0)
[2016-05-11 06:47] LABS: ALBUMIN 1.9 GM/DL (3.2-5.2); ALBUMIN/GLOBULIN RATIO 0.25 (1.00-1.93); ALKALINE PHOSPHATASE 79 U/L (45-117); ALT/SGPT 30 U/L (12-78); AST/SGOT 13 U/L (15-37); BILIRUBIN,TOTAL 0.4 MG/DL (0.2-1.0); TOTAL PROTEIN 9.4 GM/DL (6.4-8.2)
--- NOTE | 2016-05-11 07:24 | ECGEPIP ---
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
[2016-05-11] MEDS: ALBUTEROL SULFATE 2.5 MG/0.5 ML INH NEB SOLN INH SCH ×4 (07:38→20:25)
[2016-05-11 08:00] VITALS: BP 96/58
[2016-05-11] MEDS: amLODIPine 5 MG TAB PO SCH (09:00)
[2016-05-11] MEDS: MAGIC MOUTHWASH SUSPENSION BTL SSP SCH ×3 (09:07→17:51)
[2016-05-11] MEDS: FLUTICASONE PROP 0.05% NASAL SPRAY 16 GM (FLONASE) SCH (09:09)
[2016-05-11] MEDS: DOCUSATE SODIUM 100 MG CAP PO SCH ×2 (09:09→21:27)
[2016-05-11] MEDS: guaiFENesin ER 600 MG TAB PO SCH ×2 (09:10→21:27)
[2016-05-11 12:00] VITALS: BP 110/62
[2016-05-11 13:19] LABS: IMMUNOGLOBULIN G 273 MG/DL (681-1648); IMMUNOGLOBULIN M 5260 MG/DL (40-230)
--- NOTE | 2016-05-11 13:24 | CR ---
DATE OF CONSULTATION: 05/11/2016 CONSULTING PHYSICIAN: Dr. 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 HISTORY OF PRESENT ILLNESS: Sebastián Manning is a 76-year-old gentleman with a history of Waldenstrom's macroglobulinemia. He was treated in the past by Dr. Rand in October 2008 with cladribine. Upon relapse in January 2010, he was treated with rituxan, Cytoxan and dexamethasone. He had a second remission which lasted for two years. 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 Immunohistochemical stains for B-cell showed 60-70% involvement. 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 He was then treated with six cycles of rituxan and bendamustine which he completed in November 2013. When I started seeing him and following his counts, he was noted to have hemoglobin of 11, platelet count 175,000 and white count of 4400. Creatinine was 1. His serum protein electrophoresis showed a M-spike of 2.6 grams/dL in mid gamma region. Subsequent hemoglobin revealed an elevated IgM at 3550 and serum viscosity of 2.6 However, in February 2016, serum viscosities continued to increase, although he did not have any symptoms. No headaches. No vision changes. More recently, his serum viscosity was elevated to 5.9. I discussed with Mr. Manning and I advised him to start therapy given the elevated serum viscosity, but he was hesitant to start chemotherapy because he told me he had side effects including fatigue and anorexia with his last chemotherapy. He was then started on ibrutinib after a lot of conviction and he did take three tablets of ibrutinib. However, on 04/21/2016 he had a mechanical fall. He was evaluated at [facility] after being found unresponsive. He was noted to be in atrial fibrillation with rapid ventricular rate. He was started on Cardizem drip at [facility]. He was actually intubated and reintubated at [facility]. A CT scan of the brain showed a right subdural hematoma. He was then transferred to [facility] and there was a concern also on the CT scan for possible compression fracture of the left coracoid process. There was also a T3 indeterminate deformity. When I saw him in the office, he did have a body brace on. He was started on Keppra as well and there were some mental status changes per his daughters. I referred him to a neurologist. However, yesterday, he was noted to have worsening mental status and was transferred to the emergency department (ED) at [facility]. I was asked to see him given the concern for hyperviscosity. PAST MEDICAL HISTORY: 1. Waldenstrom's. 2. Paroxysmal atrial fibrillation. 3. Seizures. 4. Subdural hematoma in March 2016 as above. 5. T3 compression fracture. 6. Hypertension. 7. Hypercholesterolemia. 8. Retinal detachment. 9. Total hip replacement. 10. Seasonal allergies. PAST SURGICAL HISTORY: 1. Total hip arthroplasty. 2. Retinal detachment repair. 3. Colonoscopy. MEDICATIONS: - Keppra - Norvasc - potassium - Levaquin ALLERGIES: No known drug allergies. 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 He is a . No tobacco use. No alcohol. FAMILY HISTORY: No history of malignancy. PHYSICAL EXAMINATION: VITALS: Blood pressure 121/65. Pulse 80. Respiratory rate 16. He is afebrile. GENERAL: He is in no acute distress. He is actually sleeping when I see him at the bedside, but is able to engage in conversation once awakened. HEENT: No pallor. Anicteric sclerae. Mucosa moist. Oropharynx is clear. Heart: Regular rate and rhythm. Lungs: Clear bilaterally. No wheezing, rhonchi or rales. Abdomen: Soft. No hepatosplenomegaly. Extremities: No edema. LABS: White count is 3.2, hemoglobin 8.4, platelet count 156,000. MRI of the brain done on 05/10/2016 shows a 1 cm subacute early chronic subdural hematoma over the right cerebral hemisphere with minimal midline shift to the left. IMPRESSION AND PLAN: 76-year-old gentleman with history of relapse of Waldenstrom's macroglobulinemia treated in the past with rituxan, Cytoxan and cladribine. Most recently, with elevated serum viscosity, initially presenting with no symptoms, but complicated by subdural hematoma in the right cerebral hemisphere and some lethargy, likely secondary to his Keppra use. Repeat MRI shows significant improvement of the subdural hematoma. 1. Recommend checking his serum viscosity and beta 2 macroglobulin. 2. If his mental status improves, then he could be possibly be treated as an outpatient in the chemotherapy infusion suite with rituxan. Otherwise, if his mental status does not improve, then he could be a candidate for plasmapheresis and this will have to be done at [facility]. However, this is currently contra- indicated given his subdural hematoma. MTDD
[2016-05-11 13:46] LABS: IMMUNOGLOBULIN E < 3.6 IU/ML (<100)
[2016-05-11 14:13] LABS: FREE T4 1.13 NG/DL (0.76-1.46)
[2016-05-11] MEDS: LACTULOSE 20 GM/30 ML SYRUP UD PO SCH ×2 (14:15→21:27)
[2016-05-11 15:30] VITALS: BP 128/56
--- NOTE | 2016-05-11 16:44 | IPNPDOC ---
Assessment/Plan Date Seen The patient was seen on 05/11/16. Plan / VTE VTE Prophylaxis Ordered?: Yes Plan Plan Text 1. Acute encephalopathy possibly multifactorial in etiology. Thus far, no evidence of underlying infectious etiology Possibly related to Keppra as the patient's symptoms have coincided since the initiation of the drug-this has been withheld and Keppra level pending EEG done this morning to rule out underlying seizure-like activity, neurology has been consulted for this Underlying subdural hematoma, CT head and MRI of the brain noted-this appears to be chronic, unchanged-we will order imaging studies that were done on his previous hospitalization in [place] Possibly related to underlying Waldenstrom's macroglobulinemia progression- hematology/oncology has been consulted for this and we will follow-up for the need of plasmapheresis whether done as an outpatient, or at another facility. 2. Waldenstrom's macroglobulinemia. Immunoglobulin levels, serum viscosity, and beta-[address] Gamble of heme onc on board 3. Elevated ammonia level Ammonia level noted to be 49 this a.m. Liver function tests within normal limits We will start the patient on lactulose here to see if this will help with the patient's mentation and bring down the ammonia level 4. Chronic leukopenia and anemia, stable. No acute indication for red blood cell transfusion. 5. 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 Appears to be stable on repeat CT Continue neurological checks Keppra has been discontinued at this time as it may have been causing the patient to be more lethargic EEG ordered to rule out underlying seizure-like activity Neurology on board Subjective Review of Systems CC/HPI The patient is a 76-year-old male admitted with a reason for visit of Acute Encephalopathy. General: Denies: Chills, Night Sweats Constitutional: Denies: Chills, Fever Eyes: Denies: Pain, Vision change ENT: Denies: Ear Pain, Head Aches Skin: Denies: Lesions, Rash Pulmonary: Denies: Cough, Dyspnea Cardiovascular: Denies: Chest Pain, Palpitations Gastrointestinal: Denies: Abdominal Pain, Nausea, Vomiting Hematologic: Denies: Bleeding Excessively, Bruising Objective Physical Examination General Exam: Positive: Cooperative, No Acute Distress ENT Exam: Positive: Atraumatic, Mucous membr. moist/pink Chest Exam: Positive: Clear to auscultation, Normal air movement Heart Exam: Positive: Normal S1, Normal S2, Rate Normal Abdomen Exam: Positive: Soft, Negative: Tenderness Extremity Exam: Negative: Edema, Tenderness Vital Signs/I&O Vital Signs Date Time Temp Pulse Resp B/P Pulse Ox O2 Delivery O2 Flow Rate FiO2 05/11/16 15:30 97.0 76 18 128/56 96 Room Air I&O- Last 24 Hours up to 6 AM 05/11/16 06:00 Intake Total 450 ml Output Total 500 ml Balance -50 ml Laboratory Data Labs 24H Laboratory Tests 2 05/10/16 21:19: Lactic Acid Level 0.7 05/11/16 05:29: Aspartate Amino Transf (AST/SGOT) 13L, Alanine Aminotransferase (ALT/SGPT) 30, Alkaline Phosphatase 79, Total Bilirubin 0.4, Direct Bilirubin 0.0, Albumin 1.9L , Albumin/Globulin Ratio 0.25L, Anion Gap 8, White Blood Count 3.2L, Red Blood Count 2.57L, Hemoglobin 8.1L, Hematocrit 25.4L, Mean Corpuscular Volume 99.1H, Mean Corpuscular Hemoglobin 31.5, Mean Corpuscular Hemoglobin Concent 31.8L, Red Cell Distribution Width 17.7H, Platelet Count 157, Neutrophils (%) (Auto) 48.3, Lymphocytes (%) (Auto) 31.5, Monocytes (%) (Auto) 5.6H, Eosinophils (%) ( Auto) 6.0H, Basophils (%) (Auto) 0.7, Neutrophils # (Auto) 1.6L, Lymphocytes # ( Auto) 1.3L, Monocytes # (Auto) 0.2, Eosinophils # (Auto) 0.2, Basophils # (Auto ) 0.0, Calcium Level 8.5L, Glomerular Filtration Rate > 60.0, Large Unclassified Cells # 0.3, Large Unclassified Cells % 8.0H, Total Protein 9.4H 05/11/16 06:53: Ammonia 49H 05/11/16 08:59: Urine Amorphous Sediment , Urine Appearance CLEAR, Urine Color YELLOW, Urine pH 6.0, Urine Specific [place] 1.018, Urine Protein 1+H, Urine Glucose (UA) NEGATIVE, Urine Ketones NEGATIVE, Urine Urobilinogen 0.2, Urine Bilirubin NEGATIVE, Urine Leukocyte Esterase NEGATIVE, Urine Bacteria (Auto) NEGATIVE, Urine Blood 1+H, Urine Calcium Carbonate Cryst(Auto) , Urine Calcium Oxalate Cryst (Auto) , Urine Calcium Phosphate [place] (Auto) , Urine Cellular Casts , Urine Cystine Crystals , Urine Granular Casts (Auto) , Urine Hyaline Casts (Auto ) 0, Urine Leucine Crystals , Urine Mucus (Auto) , Urine Nitrite NEGATIVE, Urine Oval Fat Bodies (Auto) , Urine RBC (Auto) 9H, Urine Renal Epithelial Cells , Urine Sperm (Auto) , Urine Squamous Epithelial Cells 0, Urine Transitional Epithelial Cells , Urine Trichomonas (Auto) , Urine Triple Phosphate Cryst (Auto) , Urine Tyrosine Crystals , Urine Uric Acid Crystals ( Auto) , Urine WBC (Auto) 0, Urine Waxy Casts (Auto) , Urine Yeast-Like Cells ( Auto) 05/11/16 12:10: Free Thyroxine 1.13, Free Triiodothyronine 1.2L, Thyroid Stimulating Hormone ( TSH) 6.400H 05/11/16 12:11: Immunoglobulin A 124.0, Immunoglobulin E < 3.6, Immunoglobulin G 273L, Immunoglobulin M 5260H CBC/BMP Laboratory Tests 05/11/16 05:29 Red Blood Count 2.57 L, Mean Corpuscular Volume 99.1 H, Mean Corpuscular Hemoglobin 31.5, Mean Corpuscular Hemoglobin Concent 31.8 L, Red Cell Distribution Width 17.7 H, Neutrophils (%) (Auto) 48.3, Lymphocytes (%) (Auto) 31.5, Monocytes (%) (Auto) 5.6 H, Eosinophils (%) (Auto) 6.0 H, Basophils (%) ( Auto) 0.7, Neutrophils # (Auto) 1.6 L, Lymphocytes # (Auto) 1.3 L, Monocytes # ( Auto) 0.2, Eosinophils # (Auto) 0.2, Basophils # (Auto) 0.0 Microbiology Microbiology 05/10/16 Blood Culture - Preliminary, Resulted No growth after 24 hours . All specim... 05/10/16 Blood Culture - Preliminary, Resulted No growth after 24 hours . All specim... 05/11/16 Influenza Virus Type A Antigen - Final, Complete 05/11/16 Influenza Virus Type B Antigen - Final, Complete 05/11/16 Urine Culture, Received Pending DENVRE ARITA MD May 11, 2016 16:44
[2016-05-11] MEDS: ANALGESIC BALM CRM 120 GM TOP PRN (17:51)
[2016-05-11 19:56] VITALS: BP 129/65
--- NOTE | 2016-05-11 20:50 | CR ---
DATE OF NEUROLOGY CONSULTATION: 05/11/2016 REFERRING PHYSICIAN: Dr. Shruti Villavicencio REASON FOR CONSULTATION: Lethargy, difficulty walking and seizure. HISTORY OF PRESENT ILLNESS: Sebastián Manning is a 76-year-old man with history of Waldenstrom macroglobulinemia who has history of hyperviscosity syndrome requiring plasmapheresis and has been in remission. He had recurrence of his Waldenstrom macroglobulinemia and was going to have a third chemotherapy. He developed cold and pneumonia. He had difficulty walking at baseline. He fell on April 21, 2016 and hit his head on stairs. He was taken to [facility] and was found to have right frontal and parietal 1 cm subdural hematoma. He had a witnessed seizure in which his head turned to left side for 10 seconds. His daughters did not think that he had a generalized seizure. He was unconscious. He was intubated for airway protection right after his seizure. He also had a recurrence of his atrial fibrillation at that time. He stayed at [facility] for 10 days. He was started on Keppra 5 mg by mouth twice a day which made him very sleepy. He had 13 pounds of weight loss and had mouth sores. His primary care physician reduced his Keppra 250 mg in the morning and 5 mg at night, but he continued to have side effects. He was finally brought [facility]. He has history of intermittent back pain. 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 There are no reports of headaches and neck pain. We decided to discontinue his Keppra yesterday due to excessive sedation. He was more awake today. PAST MEDICAL HISTORY: Waldenstrom macroglobulinemia. History of hyperviscosity syndrome. Paroxysmal atrial fibrillation. Partial seizure. Subdural hematoma. T3 vertebral fracture in thoracic spine. Hypertension. Dyslipidemia. History of retinal detachment. Total hip replacement. Allergic rhinitis. ALLERGIES: None. HOME MEDICATIONS: Keppra 5 mg by mouth twice a day, which has been discontinued Norvasc 5 mg by mouth daily potassium chloride 20 mEq by mouth daily Levaquin 500 mg by mouth daily SOCIAL HISTORY: He is a former smoker. There are no reports of alcohol or illicit drugs. due to a stroke and 2005. REVIEW OF SYSTEMS: All systems were reviewed and found to be noncontributory except as mentioned in history present illness. PHYSICAL EXAMINATION: Temperature 98.9, pulse 78, respiratory rate 20, blood pressure 136/75. Heart: Regular rate and rhythm. Lungs: Clear to auscultation. Abdomen: Soft, nontender, nondistended. No pedal edema. NEUROLOGIC EXAMINATION: The patient is drowsy, but arousable. He is able to answer simple questions. He is oriented to year, name of president and city. He is unable to tell me name of place, exact date and day. Extraocular muscles are intact. No facial weakness. Tongue and uvula are midline. 5/5 strength in all four extremities. Deep tendon flexes 2+ throughout, except for ankles where they are absent. He has decreased cold, pinprick, vibration sensation in his feet. No dysmetria. Gait could not be tested. DIAGNOSTIC STUDIES: His CT scan of head and MRI scan of brain was reviewed and showed subacute-early chronic right frontal and parietal 1 cm thick subdural hematoma. ASSESSMENT: 1. Post-traumatic right frontal and parietal subdural hematoma. 2. One partial onset seizure, not intractable. 3. Multifactorial gait difficulty. PLAN: 1. Discontinue Keppra. 2. EEG. 3. If he has a recurrent seizure, we may consider Depakote or Vimpat as it will not affect levels of his chemotherapeutic agents. 4. Physical and occupational therapy. 5. Follow with our office in 2 weeks after hospital discharge.
[2016-05-11 23:59] VITALS: BP 130/74
[2016-05-12 04:00] VITALS: BP 105/54
[2016-05-12 05:38] LABS: BASO % 0.6 % (0.0-1.0); EOS # 0.2 K/mm3 (0.0-0.50); EOS % 5.5 % (0.0-3.0); LARGE UNSTAINED CELL # 0.2 K/mm3 (0.0-0.4); LARGE UNSTAINED CELL % 6.8 % (0.0-4.0); LYMPH # 1.1 K/mm3 (1.5-4.5); LYMPH % 35.8 % (24.0-44.0); MEAN CORPUSCULAR HEMOGLOBIN 32.1 pg (27.0-33.0); MEAN CORPUSCULAR HGB CONC 32.4 g/dl (32.0-36.5); MEAN CORPUSCULAR VOLUME 99.1 fl (80.0-96.0); MONO # 0.2 K/mm3 (0.0-0.8); MONO % 5.5 % (0.0-5.0); NEUTROPHILS # 1.4 K/mm3 (1.8-7.7); NEUTROPHILS % 45.9 % (36.0-66.0); PLATELET COUNT, AUTOMATED 150 k/mm3 (150-450); RED CELL DISTRIBUTION WIDTH 16.5 % (11.5-14.5)
[2016-05-12 05:40] LABS: ANION GAP 8 MEQ/L (8-16); BLOOD UREA NITROGEN 16 MG/DL (7-18); CALCIUM LEVEL 8.3 MG/DL (8.8-10.2); CARBON DIOXIDE LEVEL 26 MEQ/L (21-32); CHLORIDE LEVEL 106 MEQ/L (98-107); CREATININE FOR GFR 1.01 MG/DL (0.70-1.30); GLOMERULAR FILTRATION RATE > 60.0 (>42); GLUCOSE, FASTING 99 MG/DL (83-110); POTASSIUM SERUM 3.4 MEQ/L (3.5-5.1); SODIUM LEVEL 140 MEQ/L (136-145)
[2016-05-12] MEDS: LevoFLOXacin 500 MG TABLET PO SCH (06:29)
[2016-05-12] MEDS: SLF 3 ML SYR IV SCH ×3 (06:29→22:10)
[2016-05-12] MEDS: ALBUTEROL SULFATE 2.5 MG/0.5 ML INH NEB SOLN INH SCH ×4 (07:19→17:51)
[2016-05-12] MEDS ORDERED: POTASSIUM CHLORIDE 10% LIQ 20 MEQ/15 ML UDC PO ONE (07:30)
[2016-05-12 08:00] VITALS: BP 114/58
[2016-05-12] MEDS: guaiFENesin ER 600 MG TAB PO SCH ×2 (08:10→22:09)
[2016-05-12] MEDS: LACTULOSE 20 GM/30 ML SYRUP UD PO SCH ×2 (08:10→22:08)
[2016-05-12] MEDS: MAGIC MOUTHWASH SUSPENSION BTL SSP SCH ×3 (08:10→17:16)
[2016-05-12] MEDS: FLUTICASONE PROP 0.05% NASAL SPRAY 16 GM (FLONASE) SCH (08:10)
[2016-05-12] MEDS: amLODIPine 5 MG TAB PO SCH (08:11)
[2016-05-12] MEDS: DOCUSATE SODIUM 100 MG CAP PO SCH ×2 (08:11→22:09)
--- NOTE | 2016-05-12 11:42 | IPNPDOC ---
Assessment/Plan Date Seen The patient was seen on 05/12/16. Plan / VTE VTE Prophylaxis Ordered?: Yes Plan Plan Text 1. Acute encephalopathy possibly multifactorial in etiology. Thus far, no evidence of underlying infectious etiology Possibly related to Keppra as the patient's symptoms have coincided since the initiation of the drug-this has been withheld and Keppra level pending EEG pending to rule out underlying seizure-like activity, neurology input noted Underlying subdural hematoma, CT head and MRI of the brain noted-this appears to be chronic, unchanged-we will order imaging studies that were done on his previous hospitalization in [place] to compare Possibly related to underlying Waldenstrom's macroglobulinemia progression- hematology/oncology has been consulted for this and we will follow-up for the need of plasmapheresis whether done as an outpatient, or at another facility. Patient's mentation and appetite much improved today as per patient and family who is at bedside. 2. Waldenstrom's macroglobulinemia. Immunoglobulin levels, serum viscosity, and beta-[address] Gamble of [facility] onc on board 3. Elevated ammonia level Ammonia level noted to be 49 Liver function tests within normal limits We will start the patient on lactulose here to see if this will help with the patient's mentation and bring down the ammonia level 4. Chronic leukopenia and anemia, stable. No acute indication for red blood cell transfusion. 5. 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 Appears to be stable on repeat CT Continue neurological checks Keppra has been discontinued at this time as it may have been causing the patient to be more lethargic EEG ordered to rule out underlying seizure-like activity Neurology on board Subjective Review of Systems CC/HPI The patient is a 76-year-old male admitted with a reason for visit of Acute Encephalopathy. General: Denies: Chills, Night Sweats Constitutional: Denies: Chills, Fever Eyes: Denies: Pain, Vision change ENT: Denies: Ear Pain, Head Aches Skin: Denies: Lesions, Rash Pulmonary: Denies: Cough, Dyspnea Cardiovascular: Denies: Chest Pain, Palpitations Gastrointestinal: Denies: Abdominal Pain, Nausea, Vomiting Hematologic: Denies: Bleeding Excessively, Bruising Objective Physical Examination General Exam: Positive: Cooperative, No Acute Distress ENT Exam: Positive: Atraumatic, Mucous membr. moist/pink Chest Exam: Positive: Clear to auscultation, Normal air movement Heart Exam: Positive: Normal S1, Normal S2, Rate Normal Abdomen Exam: Positive: Soft, Negative: Tenderness Extremity Exam: Negative: Edema, Tenderness Vital Signs/I&O Vital Signs Date Time Temp Pulse Resp B/P Pulse Ox O2 Delivery O2 Flow Rate FiO2 05/12/16 08:11 83 114/58 05/12/16 08:00 97.6 18 97 Room Air I&O- Last 24 Hours up to 6 AM 05/12/16 06:00 Intake Total 750 ml Output Total 450 ml Balance 300 ml Laboratory Data Labs 24H Laboratory Tests 2 05/11/16 12:10: Free Thyroxine 1.13, Free Triiodothyronine 1.2L, Thyroid Stimulating Hormone ( TSH) 6.400H 05/11/16 12:11: Immunoglobulin A 124.0, Immunoglobulin E < 3.6, Immunoglobulin G 273L, Immunoglobulin M 5260H 05/12/16 05:14: Anion Gap 8, White Blood Count 3.0L, Red Blood Count 2.47L, Hemoglobin 7.9L, Hematocrit 24.5L, Mean Corpuscular Volume 99.1H, Mean Corpuscular Hemoglobin 32.1, Mean Corpuscular Hemoglobin Concent 32.4, Red Cell Distribution Width 16.5H, Platelet Count 150, Neutrophils (%) (Auto) 45.9, Lymphocytes (%) (Auto) 35.8, Monocytes (%) (Auto) 5.5H, Eosinophils (%) (Auto) 5.5H, Basophils (%) ( Auto) 0.6, Neutrophils # (Auto) 1.4L, Lymphocytes # (Auto) 1.1L, Monocytes # ( Auto) 0.2, Eosinophils # (Auto) 0.2, Basophils # (Auto) 0.0, Blood Urea Nitrogen 16, Creatinine 1.01, Sodium Level 140, Potassium Level 3.4L, Chloride Level 106, Carbon Dioxide Level 26, Calcium Level 8.3L, Glomerular Filtration Rate > 60.0, Large Unclassified Cells # 0.2, Large Unclassified Cells % 6.8H CBC/BMP Laboratory Tests 05/12/16 05:14 Calcium Level 8.3 L, Red Blood Count 2.47 L, Mean Corpuscular Volume 99.1 H, Mean Corpuscular Hemoglobin 32.1, Mean Corpuscular Hemoglobin Concent 32.4, Red Cell Distribution Width 16.5 H, Neutrophils (%) (Auto) 45.9, Lymphocytes (%) ( Auto) 35.8, Monocytes (%) (Auto) 5.5 H, Eosinophils (%) (Auto) 5.5 H, Basophils (%) (Auto) 0.6, Neutrophils # (Auto) 1.4 L, Lymphocytes # (Auto) 1.1 L, Monocytes # (Auto) 0.2, Eosinophils # (Auto) 0.2, Basophils # (Auto) 0.0 Microbiology Microbiology 05/10/16 Blood Culture - Preliminary, Resulted No Growth after 48 hours. All Specime... 05/10/16 Blood Culture - Preliminary, Resulted No Growth after 48 hours. All Specime... 05/11/16 Influenza Virus Type A Antigen - Final, Complete 05/11/16 Influenza Virus Type B Antigen - Final, Complete 05/11/16 Urine Culture, Received Pending DENVER ARITA MD May 12, 2016 11:42
[2016-05-12 12:00] VITALS: BP 146/62
[2016-05-12 16:00] VITALS: BP 128/66
[2016-05-12 20:00] VITALS: BP 127/66
--- NOTE | 2016-05-12 20:56 | EDDOCDS ---
Physician Documentation [facility] Name: Sebastián Manning Age: 76 yrs Sex: Male : 1940 Arrival Date: 05/10/2016 Time: 09:48 Bed 20 Private MD: Disposition: 05/10 12:19 Critical Care: Critical care not applicable. pc Disposition: 05/10/16 12:23 Hospitalization ordered by Shruti Villavicencio for Inpatient Admission. Preliminary diagnosis are Altered mental status, unspecified, Adverse effect of other antiepileptic and sedative-hypnotic drugs, Traumatic subdural hemorrhage - resolving, Waldenstr m macroglobulinemia. - Bed requested for PCU. - Status is Inpatient Admission. mgs - Condition is Stable. - Problem is new. - Symptoms have improved. HPI: 11:34 This 76 yrs old Male presents to ER via Ambulance with complaints of Altered pc Mental Status. 11:34 The history is obtained from the patient, the patient's family/friend, long term pc records. He has been increasingly tired, with a cough and poor oral intake for a few days. He had a fall with a SDH weeks ago, admitted to [facility] for observation and stable since . He was sent for evaluation, with concerns for hyperviscosity due to his Waldenstrom's. Historical: - Allergies: no known allergies; - Home Meds: 1. Keppra 500 mg oral tab 1 tab 2 times per day (Last dose: 05/10/2016 08:00) 2. Norvasc 5 mg Oral tab 1 tab once daily (Last dose: 05/10/2016 08:00) 3. potassium chloride 20 mEq Oral TbER 1 tab once daily (Last dose: 05/10/2016 08:00) 4. Levaquin 500 mg Oral tab 1 tab once daily (Last dose: 05/10/2016 08:00) - PMHx: Waldenstrom Macroglobulinemia; Atrial Fib; Seizures; Subarachnoid Bleed (April 21, 2016); compression Fx T3; Hypertension; - PSHx: Colonoscopy; retinal reattachment; right total hip; - The history from nurses notes was reviewed: and I agree with what is documented. - Social history: Smoking status: Patient states former smoker of tobacco. No barriers to communication noted, Speaks appropriately for age. - : The pt / caregiver states he / she is not on anticoagulants. Home medication list is obtained from the facility MAR. - Exposure Risk Screening:: None identified. - Immunization history:: All immunizations up-to-date. - Family history: Not pertinent. - Social history:: the patient is a non-smoker, the patient does not drink alcohol. ROS: 11:34 hard of hearing. pc 11:34 All systems are negative except as listed. Exam: 11:34 General Appearance: lethargic. pc 11:34 EENT: normal eye inspection, ears, nose and throat normal, mucous membranes dry. 11:34 Neck: The exam reveals no acute abnormalities. ROM is normal and painless. No nuchal rigidity is noted.. 11:34 Respiratory: no respiratory distress, normal breath sounds. 11:34 CVS: regular pulse rate, regular rhythm, normal S1 and S2, no murmurs, strong peripheral pulses. 11:34 Abdomen: soft, non-tender, no organomegaly, normal bowel sounds. 11:34 Back: normal inspection. 11:34 Skin: skin color is normal, warm, dry. 11:34 Extremities: multiple areas of ecchymosis . 11:34 Neuro: oriented x 3, cranial nerves normal as tested, no motor deficits, no sensory deficits. Vital Signs: 09:57 BP 111 / 60; Pulse 88; Resp 18; Temp 100.3(TE); Pulse Ox 96% on 2 lpm NC; Pain 0/10; dem1 MDM: 09:52 CT Head Without Contrast Ordered. EDMS 09:56 IV Saline Lock ordered. pc 09:57 CBC with Diff Ordered. EDMS 09:57 MED Profile Ordered. EDMS 10:17 Data reviewed: The patient's [facility] records were accessed, as they were informed. pc 10:30 -Blood Culture (Adults Only), peripheral from different site, or from device/port/PICC pc etc. if present ordered. 10:31 Chest, 1 View Ordered. EDMS 10:32 -Blood Culture Ordered. EDMS 10:34 -Blood Culture (Adults Only), peripheral from different site, or from device/port/PICC deg etc. if present complete. 10:35 BLOOD CULTURES Ordered. EDMS 11:15 CBC with Diff Reviewed. pc 11:15 MED Profile Reviewed. pc 11:15 CT Head Without Contrast Reviewed. pc 11:34 Differential Diagnosis: AMS; dehydration; on Keppra; recent SDH. Plan: CT, CXR, labs. pc 12:18 [facility] Payment Agreement was scanned into [employer] and attached to record. jp5 12:18 Financial registration complete. jp5 12:18 Data reviewed: old medical records, vital signs, nurses notes, EKG(s), lab test pc results, all radiology studies and available results. 12:19 Keppra (short red top tube) Ordered. EDMS 12:19 ECG WITH READING ER PHYS+CARDIAG ordered. EDMS 12:19 Test interpretation: LAB - all labs as ordered have been reviewed, interpreted and pc considered in the overall management of the clinical presentation; X-RAY - interpreted by Radiologist and personally reviewed, 1 view chest no acute disease, interpreted by Radiologist and personally reviewed, discussed with Radiologist, Head CT; resolving right SDH with no change to midline shift. Physician consultation: Dr. Jacky Gibson regarding patient's condition, and he agrees with the CT reading and will see in consult if Hospitalist requests. 12:19 Physician consultation: Dr. Omi Gamble regarding patient's condition, and he advises pc that hydrating overnight, withholding Keppra and if no change, will require transfer for plasmapheresis . 12:19 The patient has been re-examined and re-evaluated. The patient's symptoms have mildly pc improved after treatment. Physician consultation: Dr. Shruti Villavicencio was contacted at 12:21, regarding admission. Disposition: The historical points, examination findings, and any diagnostic results supporting the provided diagnosis, were discussed with the patient or legal guardian. The need for further work-up and/or treatment in the hospital was explained. 12:21 BED REQUEST+ADM ordered. EDMS 12:22 NS 0.9% 500 ml IV at bolus once ordered. pc 12:26 AMMONIA Ordered. EDMS 12:26 ARTERIAL BLOOD GAS Ordered. EDMS 12:26 MRI Brain without Contrast Ordered. EDMS 12:29 Test interpretation: EKG. pc 12:46 PHYSICAL THERAPY EVAL & TREAT ordered. EDMS 12:46 Admission / Observation Status ordered. EDMS 12:47 NPO DIET ordered. EDMS 12:48 URINALYSIS Ordered. EDMS 14:42 URINALYSIS Ordered. EDMS 14:42 URINE CULTURE Ordered. EDMS 15:01 PROLACTIN Ordered. EDMS 15:52 INFLUENZA A&B RAPID ANTIGEN Ordered. EDMS 19:31 BASIC METABOLIC PROFILE Ordered. EDMS 19:31 CBC WITH DIFFERENTIAL Ordered. EDMS EC:29 Rate is 80 beats/min. Rhythm is regular, Normal Sinus Rhythm with 1st degree heart pc block. Left axis deviation noted. QRS is negative in leads II, aVF. NM interval is normal. QRS interval is normal. QT interval is normal. No Q waves. T waves are Normal. Clinical impression: Normal Sinus Rhythm and 1st degree heart block. Administered Medications: 12:33 Drug: NS 0.9% 500 ml [sodium chloride 0.9 % intravenous solution] Route: IV; Rate: ml6 bolus; Site: left antecubital; 14:45 Follow up: IV Status: Completed infusion; Infusion discontinued; IV Intake: 500ml ml6 Signatures: Dispatcher [employer] EDNY Kyle Rico MD MD pc Murray, Denise, [employer] Furn[employer] Sales Representative Unit deg Zeeshan Oseguera RN RN dwg Lowe, Matthew, RN RN ml6 Zev Cervantes,Treasure Luz RN jp5 The chart was reviewed and I authenticate all verbal orders and agree with the evaluation and treatment provided.Attachments: 12:18 [facility] Payment Agreement [email or web address] Chart Complete MTDD
--- NOTE | 2016-05-12 20:56 | EDDOCDS ---
Nurse's Notes [facility] Name: Sebastián Manning Age: 76 yrs Sex: Male : 1940 Arrival Date: 05/10/2016 Time: 09:48 Bed 20 Private MD: Diagnosis: Altered mental status, unspecified;Adverse effect of other antiepileptic and sedative-hypnotic drugs;Traumatic subdural hemorrhage-resolving;Waldenstr m macroglobulinemia Presentation: 05/10 09:57 Presenting complaint: EMS states: sent from [facility] due to increased lethargy. Adult Sepsis ml6 Screening: The patient does not have new or worsening altered mentation. Patient's respiratory rate is less than 22. Systolic blood pressure is greater than 100. Patient has a qSOFA score of 0- Negative Sepsis Screen. Suicide/Homicide risk assessment- the patient denies having any suicidal and/or homicidal ideations and does not present with any other emotional, behavioral or mental health complaints. Status: Patient is not a social service worker or dependent. Transition of care: patient was not received from another setting of care. 09:57 Acuity: AMA Level 3 ml6 09:57 Method Of Arrival: Ambulance ml6 Triage Assessment: 09:57 General: Appears in no apparent distress, Behavior is appropriate for age, cooperative. ml6 Pain: Denies pain. The patient is triaged at the bedside. See Assessment in Nurses Notes section of ED record. Neurological: Level of Consciousness is awake, alert, Oriented to person, place, Computerized Machine Fabric Cutter are equal bilaterally Moves all extremities. Speech is normal, Facial symmetry appears normal, Pupils are PERRLA. Cardiovascular: No deficits noted. Capillary refill < 3 seconds is brisk in bilateral fingers toes Heart tones S1 S2 present. Respiratory: No deficits noted. Airway is patent Respiratory effort is even, unlabored, Respiratory pattern is regular, symmetrical, Breath sounds are clear bilaterally. GI: No deficits noted. Abdomen is flat, non- distended. : No deficits noted. Historical: - Allergies: no known allergies; - Home Meds: 1. Keppra 500 mg oral tab 1 tab 2 times per day (Last dose: 05/10/2016 08:00) 2. Norvasc 5 mg Oral tab 1 tab once daily (Last dose: 05/10/2016 08:00) 3. potassium chloride 20 mEq Oral TbER 1 tab once daily (Last dose: 05/10/2016 08:00) 4. Levaquin 500 mg Oral tab 1 tab once daily (Last dose: 05/10/2016 08:00) - PMHx: Waldenstrom Macroglobulinemia; Atrial Fib; Seizures; Subarachnoid Bleed (April 21, 2016); compression Fx T3; Hypertension; - PSHx: Colonoscopy; retinal reattachment; right total hip; - The history from nurses notes was reviewed: and I agree with what is documented. - Social history: Smoking status: Patient states former smoker of tobacco. No barriers to communication noted, Speaks appropriately for age. - : The pt / caregiver states he / she is not on anticoagulants. Home medication list is obtained from the facility JUN. - Exposure Risk Screening:: None identified. - Immunization history:: All immunizations up-to-date. - Family history: Not pertinent. - Social history:: the patient is a non-smoker, the patient does not drink alcohol. Screenin:28 Screening information is obtained from the patient. Fall risk: At risk due to age. ml6 Assistance ADL's: requires no assistance with activities of daily living. Abuse/DV Screen: The patient / caregiver reports he/she is: not in a situation that causes fear, pain or injury. Nutritional screening: No deficits noted. Advance Directives: Currently, there is no health care proxy. home support is adequate. Assessment: 09:57 General: see triage assessment'. ml6 11:00 Reassessment: Patient appears in no apparent distress at this time. Patient denies pain ml6 at this time. Patient states feeling better. Patient states symptoms have improved. patient sleeping intermittently, states fatigue, denies pain or discomfort, family at bedside awaiting test result. 11:00 Derm: Bruising that is dark purple, yellow, on right eye, right clavicle, anterior ml6 aspect of right upper chest and right arm. 12:00 Reassessment: Patient appears in no apparent distress at this time. Patient denies pain ml6 at this time. Patient states feeling better. Patient states symptoms have improved. patient sleeping, agitation noticeably reduced. 13:00 General: Appears in no apparent distress, Behavior is appropriate for age, cooperative. ml6 Pain: Denies pain. Neurological: No deficits noted. Level of Consciousness is awake, alert, Oriented to person, place, time. Cardiovascular: No deficits noted. Capillary refill < 3 seconds is brisk in bilateral fingers toes. Respiratory: No deficits noted. 14:00 Reassessment: Patient appears in no apparent distress at this time. Patient denies pain ml6 at this time. Patient states feeling better. Patient states symptoms have improved. patient sleeping soundly resp unlabored. 19:52 General: Appears in no apparent distress, Behavior is appropriate for age, cooperative. mgs Pain: Denies pain. Neurological: Level of Consciousness is awake, alert, Oriented to person, place, time, Computerized Machine Fabric Cutter are equal bilaterally Moves all extremities. Speech is normal, Facial symmetry appears normal, Pupils are PERRLA. Cardiovascular: Capillary refill < 3 seconds. Respiratory: Airway is patent Respiratory effort is even, unlabored, Respiratory pattern is regular, symmetrical. Derm: Bruising that is yellow, on right eye. Vital Signs: 09:57 BP 111 / 60; Pulse 88; Resp 18; Temp 100.3(TE); Pulse Ox 96% on 2 lpm NC; Pain 0/10; dem1 Vitals: 09:57 Log In Time N/A - ambulance arrival. [facility] ED Course: 09:49 Patient visited by Emely Cain, Rotor Blade Installer. deg 09:49 Patient moved to Waiting deg 09:50 Kyle Rico MD is Attending Physician. pc 09:50 Patient moved to 10 [facility] 09:58 Triage Initiated ml6 09:58 Pt greeted and oriented to ED. Patient advised of names of staff involved in care, [facility] location of call [place], wait times and NPO status. Patient has correct armband on for positive identification. Placed in gown. Bed in low position. Call light in reach. Side rails up X2. compliance monitor on. Pulse ox on. NIBP on. 09:59 Patient visited by Howard Barragan. dem1 10:06 Patient visited by Kyle Rico MD. pc 10:08 Inserted peripheral IV: 20gauge IV in left antecubital area and blood collected. ml6 Patient tolerated the procedure well. No procedures done that require assistance. Labs drawn. (by ED staff). Sent per order to lab. 10:31 MED Profile Sent. ml6 10:31 CBC with Diff Sent. ml6 10:34 Patient visited by Zev Fraser RN. ml6 11:02 CT Head Without Contrast Returned. EDMS 11:04 Patient visited by Zev Fraser, DIMA. ml6 11:30 Patient visited by Zev Fraser, DIMA. ml6 11:41 Chest, 1 View Returned. EDMS 12:08 Patient visited by Alma Oakes PCA. ls3 12:18 [facility] Payment Agreement was scanned into [employer] and attached to record. jp5 12:23 Shruti Villavicencio is Hospitalizing Provider. pc 12:26 Patient visited by Bettina Hernandez PCA. ct3 12:26 EKG done. (by ED staff). Reviewed by Kyle Rico MD. ct3 13:08 Patient moved to Admit Hold jo3 13:27 ARTERIAL BLOOD GAS Sent. cs15 14:03 Patient moved to MRI ml6 14:59 Patient moved to Admit Hold dwg 15:59 MRI Brain without Contrast Returned. EDMS 18:49 Inserted. nr1 19:00 Patient moved to 20 dwg 19:02 Patient visited by Kaleb Cosby PCA. kb5 19:45 Zev Cervantes,DIMA is Primary Nurse. mgs 19:52 The patient / caregiver is instructed regarding the plan of care and ED course. mgs Administered Medications: 12:33 Drug: NS 0.9% 500 ml [sodium chloride 0.9 % intravenous solution] Route: IV; Rate: ml6 bolus; Site: left antecubital; 14:45 Follow up: IV Status: Completed infusion; Infusion discontinued; IV Intake: 500ml ml6 Intake: 14:45 IV: 500.00ml; Total: 500.00ml. ml6 RT: 13:27 ABG's drawn from left radial artery allens test done and positive pressure held for 5 cs15 minutes no bleeding noted pressure bandage applied specimen sent pt. tolerated well. Order Results: Lab Order: CBC with Diff; SPEC'M 05/10/16 10:25 Test: WHITE BLOOD COUNT; Value: 2.6; Range: 4.0-10.0; Abnormal: Below low normal; Units: K/mm3; Status: F Test: RED BLOOD COUNT; Value: 2.54; Range: 4.30-6.10; Abnormal: Below low normal; Units: M/mm3; Status: F Test: HEMOGLOBIN; Value: 8.4; Range: 14.0-18.0; Abnormal: Below low normal; Units: g/dl; Status: F Test: HEMATOCRIT; Value: 25.1; Range: 42.0-52.0; Abnormal: Below low normal; Units: %; Status: F Test: MEAN CORPUSCULAR VOLUME; Value: 98.7; Range: 80.0-96.0; Abnormal: Above high normal; Units: fl; Status: F Test: MEAN CORPUSCULAR HEMOGLOBIN; Value: 32.9; Range: 27.0-33.0; Units: pg; Status: F Test: MEAN CORPUSCULAR HGB CONC; Value: 33.3; Range: 32.0-36.5; Units: g/dl; Status: F Test: RED CELL DISTRIBUTION WIDTH; Value: 16.5; Range: 11.5-14.5; Abnormal: Above high normal; Units: %; Status: F Test: PLATELET COUNT, AUTOMATED; Value: 156; Range: 150-450; Units: k/mm3; Status: F Test: NEUTROPHILS %; Value: 55.3; Range: 36.0-66.0; Units: %; Status: F Test: LYMPH %; Value: 22.9; Range: 24.0-44.0; Abnormal: Below low normal; Units: %; Status: F Test: MONO %; Value: 8.2; Range: 0.0-5.0; Abnormal: Above high normal; Units: %; Status: F Test: EOS %; Value: 6.9; Range: 0.0-3.0; Abnormal: Above high normal; Units: %; Status: F Test: BASO %; Value: 0.4; Range: 0.0-1.0; Units: %; Status: F Test: LARGE UNSTAINED CELL %; Value: 6.3; Range: 0.0-4.0; Abnormal: Above high normal; Units: %; Status: F Test: NEUTROPHILS #; Value: 1.5; Range: 1.8-7.7; Abnormal: Below low normal; Units: K/mm3; Status: F Test: LYMPH #; Value: 0.6; Range: 1.5-4.5; Abnormal: Below low normal; Units: K/mm3; Status: F Test: MONO #; Value: 0.2; Range: 0.0-0.8; Units: K/mm3; Status: F Test: EOS #; Value: 0.2; Range: 0.0-0.50; Units: K/mm3; Status: F Test: BASO #; Value: 0.0; Range: 0.0-0.2; Units: K/mm3; Status: F Test: LARGE UNSTAINED CELL #; Value: 0.2; Range: 0.0-0.4; Units: K/mm3; Status: F Lab Order: MED Profile; SPEC'M 05/10/16 10:25 Test: GLUCOSE, FASTING; Value: 112; Range: 83-110; Abnormal: Above high normal; Units: MG/DL; Status: F Test: BLOOD UREA NITROGEN; Value: 21; Range: 7-18; Abnormal: Above high normal; Units: MG/DL; Status: F Test: CREATININE FOR GFR; Value: 1.23; Range: 0.70-1.30; Units: MG/DL; Status: F Test: GLOMERULAR FILTRATION RATE; Value: > 60.0; Range: >42; Status: F Test: SODIUM LEVEL; Value: 138; Range: 136-145; Units: MEQ/L; Status: F Test: POTASSIUM SERUM; Value: 3.6; Range: 3.5-5.1; Units: MEQ/L; Status: F Test: CHLORIDE LEVEL; Value: 105; Range: 98-107; Units: MEQ/L; Status: F Test: CARBON DIOXIDE LEVEL; Value: 26; Range: 21-32; Units: MEQ/L; Status: F Test: ANION GAP; Value: 7; Range: 8-16; Abnormal: Below low normal; Units: MEQ/L; Status: F Test: CALCIUM LEVEL; Value: 8.6; Range: 8.8-10.2; Abnormal: Below low normal; Units: MG/DL; Status: F Test Note: ; Units are mL/min/1.73 m2 Chronic Kidney Disease Staging per NKF: Stage I & II GFR >=60 Normal to Mildly Decreased Stage III GFR 30-59 Moderately Decreased Stage IV GFR 15-29 Severely Decreased Stage V GFR <15 Very Little GFR Left ESRD GFR <15 on UTILITY GELATIN MAKER Lab Order: AMMONIA; SPEC'05/10/16 13:33 Test: AMMONIA; Value: 41; Range: <32; Abnormal: Above high normal; Units: uMOL/L; Status: F Lab Order: ARTERIAL BLOOD GAS; SPEC'M 05/10/16 13:25 Test: ABG pH (ARTERIAL); Value: 7.476; Range: 7.350-7.450; Abnormal: Above high normal; Units: UNITS; Status: F Test: ABG PARTIAL PRESSURE CO2; Value: 34.3; Range: 35.0-45.0; Abnormal: Below low normal; Units: mmHg; Status: F Test: ABG PARTIAL PRESSURE O2; Value: 106.0; Range: 75.0-100.0; Abnormal: Above high normal; Units: mmHg; Status: F Test: ABG TOTAL CO2; Value: 25.8; Range: 23.0-31.0; Units: MEQ/L; Status: F Test: ABG HCO3; Value: 24.7; Range: 22.0-26.0; Units: MEQ/L; Status: F Test: ABG BASE EXCESS; Value: 1.3; Range: -2.0-2.0; Status: F Test: ABG STANDARD HCO3; Value: 25.7; Range: 22.0-26.0; Units: MEQ/L; Status: F Test: ABG O2 SATURATION; Value: 98.2; Range: 95.0-99.0; Units: %; Status: F Lab Order: PROLACTIN; SPEC'M 05/10/16 10:25 Test: PROLACTIN; Value: 8.3; Range: 2.1-17.7; Units: NG/ML; Status: F Radiology Order: CT Head Without Contrast Test: CT Head Without Contrast REASON FOR EXAMINATION: SDH; CT HEAD WITHOUT CONTRAST:; ; HISTORY: Subdural hematoma.; ; Areas of decreased attenuation are present in the periventricular white matter.; This represents small vessel ischemic disease. There is no intraparenchymal; hemorrhage or mass. The ventricular system and cortical sulci are dilated; consistent with minimal volume loss. Cavum septi pellucidi and vergae; are present. A chronic subdural hematoma 1 cm in width is present over the; right cerebral hemisphere. A very small amount of re-bleeding is present. There; is mass effect with minimal midline shift to the left. There is no fracture.; The visualized sinuses are clear.; ; IMPRESSION:; ; 1. Small vessel ischemic disease.; ; 2. Minimal volume loss.; ; 3. There is a 1 cm chronic subdural hematoma over the right cerebral hemisphere; with minimal midline shift to the left.; ; Results were discussed with Dr. Rico at 10:15 a.m. this date.; ; ; Signed by; Robert Fernández MD 05/10/2016 10:47 A; Radiology Order: Chest, 1 View Test: Chest, 1 View REASON FOR EXAMINATION: Cough; Clinical: Cough .; ; Comparison: 06/24/2013 .; ; Findings:; The mediastinum and cardiac silhouette are stable and within normal limits for; portable technique. The lung valencia are clear without acute consolidation,; effusion, or pneumothorax. Chronic changes to the left base again noted.; Skeletal structures are intact.; ; Impression:; No acute cardiopulmonary process identified.; ; ; Signed by; Mane Fraser MD 05/10/2016 11:11 A; Radiology Order: MRI Brain without Contrast Test: MRI Brain without Contrast REASON FOR EXAMINATION: somnolence SDH waldenstrom's macrogammaglobulinemia; MRI BRAIN WITHOUT CONTRAST:; ; HISTORY: Subdural hematoma.; ; COMPARISON: CT 05/10/2016; ; Areas of increased signal intensity on T2-weighted images are present in the; periventricular and subcortical white matter. This represents small vessel; ischemic disease. There is no intraparenchymal hemorrhage, infarct, or mass. The; ventricular system and cortical sulci are dilated consistent with minimal volume; loss. A very small amount of intraventricular hemorrhage is present. Cavum septum; pellucidi and vergae are present. A late subacute to early chronic subdural; hematoma 1 cm in width is present over the right cerebral hemisphere. There is; mass effect with minimal midline shift to the left. The sinuses are clear.; ; IMPRESSION:; ; 1. Small vessel ischemic disease.; ; 2. Minimal volume loss.; ; 3. There is a 1 cm late subacute to early chronic subdural hematoma over the; right cerebral hemisphere with minimal midline shift to the left.; ; ; Signed by; Robert Fernández MD 05/10/2016 03:25 P; Outcome: 12:23 Decision to Hospitalize by Provider. pc 19:51 Discharge Assessment: Patient awake, alert and oriented x 3. No cognitive and/or mgs functional deficits noted. Patient verbalized understanding of disposition instructions. patient administered narcotics - no. The following High Risk Discharge criteria are identified: None. Admitted to PCU accompanied by nurse, accompanied by tech, family with patient, via stretcher, on monitor, with chart. Condition: stable. CT Study completed. Property sent home with patient. 19:54 Patient left the ED. mgs Signatures: Dispatcher [employer] EDMS Kyle Rico MD MD pc Emely Cain, Rotor Blade Installer Unit deg Zeeshan Oseguera, RN RN Frannie Vance, RN RN [facility] Nikkie Owusu,RN RN jo3 Kaleb Cosby, LEAD PRODUCER LEAD PRODUCER kb5 Zev Fraser, RN RN ml6 Bettina Hernandez, LEAD PRODUCER LEAD PRODUCER ct3 Steven Barragania dem1 Zev Cervantes,DIMA CH mgs Kirti AndersonRN RN nr1 Treasure Garcia jp5 Alma Oakes, LEAD PRODUCER LEAD PRODUCER ls3 Jorge Pérez,RT RT cs15 Corrections: (The following items were deleted from the chart) 11:30 11:00 Reassessment: Patient appears in no apparent distress at this time. Patient ml6 denies pain at this time. Patient states feeling better. Patient states symptoms have improved. patient sleeping intermittently, states fatigue, denies pain or discomfort, family at bedside awaiting test result. ml6 Chart Complete MTDD
--- NOTE | 2016-05-12 20:56 | EDDOCDS ---
Physician Documentation [facility] Name: Sebastián Manning Age: 76 yrs Sex: Male : 1940 Arrival Date: 05/10/2016 Time: 09:48 Bed 20 Private MD: Disposition: 05/10 12:19 Critical Care: Critical care not applicable. pc Disposition: 05/10/16 12:23 Hospitalization ordered by Shruti Villavicencio for Inpatient Admission. Preliminary diagnosis are Altered mental status, unspecified, Adverse effect of other antiepileptic and sedative-hypnotic drugs, Traumatic subdural hemorrhage - resolving, Waldenstr m macroglobulinemia. - Bed requested for PCU. - Status is Inpatient Admission. mgs - Condition is Stable. - Problem is new. - Symptoms have improved. HPI: 11:34 This 76 yrs old Male presents to ER via Ambulance with complaints of Altered pc Mental Status. 11:34 The history is obtained from the patient, the patient's family/friend, retirement pc records. He has been increasingly tired, with a cough and poor oral intake for a few days. He had a fall with a SDH weeks ago, admitted to [facility] for observation and stable since . He was sent for evaluation, with concerns for hyperviscosity due to his Waldenstrom's. Historical: - Allergies: no known allergies; - Home Meds: 1. Keppra 500 mg oral tab 1 tab 2 times per day (Last dose: 05/10/2016 08:00) 2. Norvasc 5 mg Oral tab 1 tab once daily (Last dose: 05/10/2016 08:00) 3. potassium chloride 20 mEq Oral TbER 1 tab once daily (Last dose: 05/10/2016 08:00) 4. Levaquin 500 mg Oral tab 1 tab once daily (Last dose: 05/10/2016 08:00) - PMHx: Waldenstrom Macroglobulinemia; Atrial Fib; Seizures; Subarachnoid Bleed (April 21, 2016); compression Fx T3; Hypertension; - PSHx: Colonoscopy; retinal reattachment; right total hip; - The history from nurses notes was reviewed: and I agree with what is documented. - Social history: Smoking status: Patient states former smoker of tobacco. No barriers to communication noted, Speaks appropriately for age. - : The pt / caregiver states he / she is not on anticoagulants. Home medication list is obtained from the facility MAR. - Exposure Risk Screening:: None identified. - Immunization history:: All immunizations up-to-date. - Family history: Not pertinent. - Social history:: the patient is a non-smoker, the patient does not drink alcohol. ROS: 11:34 hard of hearing. pc 11:34 All systems are negative except as listed. Exam: 11:34 General Appearance: lethargic. pc 11:34 EENT: normal eye inspection, ears, nose and throat normal, mucous membranes dry. 11:34 Neck: The exam reveals no acute abnormalities. ROM is normal and painless. No nuchal rigidity is noted.. 11:34 Respiratory: no respiratory distress, normal breath sounds. 11:34 CVS: regular pulse rate, regular rhythm, normal S1 and S2, no murmurs, strong peripheral pulses. 11:34 Abdomen: soft, non-tender, no organomegaly, normal bowel sounds. 11:34 Back: normal inspection. 11:34 Skin: skin color is normal, warm, dry. 11:34 Extremities: multiple areas of ecchymosis . 11:34 Neuro: oriented x 3, cranial nerves normal as tested, no motor deficits, no sensory deficits. Vital Signs: 09:57 BP 111 / 60; Pulse 88; Resp 18; Temp 100.3(TE); Pulse Ox 96% on 2 lpm NC; Pain 0/10; dem1 MDM: 09:52 CT Head Without Contrast Ordered. EDMS 09:56 IV Saline Lock ordered. pc 09:57 CBC with Diff Ordered. EDMS 09:57 MED Profile Ordered. EDMS 10:17 Data reviewed: The patient's [facility] records were accessed, as they were informed. pc 10:30 -Blood Culture (Adults Only), peripheral from different site, or from device/port/PICC pc etc. if present ordered. 10:31 Chest, 1 View Ordered. EDMS 10:32 -Blood Culture Ordered. EDMS 10:34 -Blood Culture (Adults Only), peripheral from different site, or from device/port/PICC deg etc. if present complete. 10:35 BLOOD CULTURES Ordered. EDMS 11:15 CBC with Diff Reviewed. pc 11:15 MED Profile Reviewed. pc 11:15 CT Head Without Contrast Reviewed. pc 11:34 Differential Diagnosis: AMS; dehydration; on Keppra; recent SDH. Plan: CT, CXR, labs. pc 12:18 [facility] [place] was scanned into [employer] and attached to record. jp5 12:18 Financial registration complete. jp5 12:18 Data reviewed: old medical records, vital signs, nurses notes, EKG(s), lab test pc results, all radiology studies and available results. 12:19 Keppra (short red top tube) Ordered. EDMS 12:19 ECG WITH READING ER PHYS+CARDIAG ordered. EDMS 12:19 Test interpretation: LAB - all labs as ordered have been reviewed, interpreted and pc considered in the overall management of the clinical presentation; X-RAY - interpreted by Radiologist and personally reviewed, 1 view chest no acute disease, interpreted by Radiologist and personally reviewed, discussed with Radiologist, Head CT; resolving right SDH with no change to midline shift. Physician consultation: Dr. Jacky Gibson regarding patient's condition, and he agrees with the CT reading and will see in consult if Hospitalist requests. 12:19 Physician consultation: Dr. Omi Gamble regarding patient's condition, and he advises pc that hydrating overnight, withholding Keppra and if no change, will require transfer for plasmapheresis . 12:19 The patient has been re-examined and re-evaluated. The patient's symptoms have mildly pc improved after treatment. Physician consultation: Dr. Shruti Villavicencio was contacted at 12:21, regarding admission. Disposition: The historical points, examination findings, and any diagnostic results supporting the provided diagnosis, were discussed with the patient or legal guardian. The need for further work-up and/or treatment in the hospital was explained. 12:21 BED REQUEST+ADM ordered. EDMS 12:22 NS 0.9% 500 ml IV at bolus once ordered. pc 12:26 AMMONIA Ordered. EDMS 12:26 ARTERIAL BLOOD GAS Ordered. EDMS 12:26 MRI Brain without Contrast Ordered. EDMS 12:29 Test interpretation: EKG. pc 12:46 PHYSICAL THERAPY EVAL & TREAT ordered. EDMS 12:46 Admission / Observation Status ordered. EDMS 12:47 NPO DIET ordered. EDMS 12:48 URINALYSIS Ordered. EDMS 14:42 URINALYSIS Ordered. EDMS 14:42 URINE CULTURE Ordered. EDMS 15:01 PROLACTIN Ordered. EDMS 15:52 INFLUENZA A&B RAPID ANTIGEN Ordered. EDMS 19:31 BASIC METABOLIC PROFILE Ordered. EDMS 19:31 CBC WITH DIFFERENTIAL Ordered. EDMS EC:29 Rate is 80 beats/min. Rhythm is regular, Normal Sinus Rhythm with 1st degree heart pc block. Left axis deviation noted. QRS is negative in leads II, aVF. NM interval is normal. QRS interval is normal. QT interval is normal. No Q waves. T waves are Normal. Clinical impression: Normal Sinus Rhythm and 1st degree heart block. Administered Medications: 12:33 Drug: NS 0.9% 500 ml [sodium chloride 0.9 % intravenous solution] Route: IV; Rate: ml6 bolus; Site: left antecubital; 14:45 Follow up: IV Status: Completed infusion; Infusion discontinued; IV Intake: 500ml ml6 Signatures: Dispatcher [employer] EDGA Kyle Rico MD MD pc Murray, Denise, Final Canoe Inspector Unit deg Zeeshan Oseguera RN RN dwg Lowe, Matthew, RN RN ml6 Zev Cervantes,Treasure Luz RN jp5 The chart was reviewed and I authenticate all verbal orders and agree with the evaluation and treatment provided.Attachments: 12:18 [facility] Payment Agreement jp5 Chart Complete MTDD
[2016-05-12 23:59] VITALS: BP 119/65
[2016-05-13] VITALS (8 sets, daily range): BP systolic 93–128; BP diastolic 53–72
[2016-05-13] MEDS ORDERED: IPRATROPIUM 0.5MG/ALBUTEROL 2.5MG INH SOL UD 3ML (DUONEB)(J7620) NEB PRN (04:30)
[2016-05-13] MEDS: LevoFLOXacin 500 MG TABLET PO SCH (05:15)
[2016-05-13] MEDS: SLF 3 ML SYR IV SCH ×3 (05:16→21:47)
[2016-05-13 05:46] LABS: ANION GAP 8 MEQ/L (8-16); BLOOD UREA NITROGEN 18 MG/DL (7-18); CALCIUM LEVEL 8.5 MG/DL (8.8-10.2); CARBON DIOXIDE LEVEL 26 MEQ/L (21-32); CHLORIDE LEVEL 107 MEQ/L (98-107); CREATININE FOR GFR 1.11 MG/DL (0.70-1.30); GLOMERULAR FILTRATION RATE > 60.0 (>42); GLUCOSE, FASTING 100 MG/DL (83-110); POTASSIUM SERUM 3.4 MEQ/L (3.5-5.1); SODIUM LEVEL 141 MEQ/L (136-145)
[2016-05-13 06:03] LABS: MEAN CORPUSCULAR HGB CONC 32.1 g/dl (32.0-36.5); MEAN CORPUSCULAR VOLUME 99.5 fl (80.0-96.0); PLATELET COUNT, AUTOMATED 151 k/mm3 (150-450); RED CELL DISTRIBUTION WIDTH 17.8 % (11.5-14.5); WHITE BLOOD COUNT 3.9 K/mm3 (4.0-10.0)
[2016-05-13 07:08] LABS: EOSINOPHILS 3 % (0-5); ROULEAUX 3+
[2016-05-13 07:09] LABS: ANISOCYTOSIS 1+
[2016-05-13 07:17] LABS: MAGNESIUM LEVEL 2.1 MG/DL (1.8-2.4)
[2016-05-13] MEDS: ALBUTEROL SULFATE 2.5 MG/0.5 ML INH NEB SOLN INH SCH ×5 (07:23→21:13)
[2016-05-13] MEDS ORDERED: POTASSIUM CHLORIDE 10% LIQ 20 MEQ/15 ML UDC PO ONE (07:45)
[2016-05-13] MEDS: DOCUSATE SODIUM 100 MG CAP PO SCH ×2 (08:44→21:47)
[2016-05-13] MEDS: MAGIC MOUTHWASH SUSPENSION BTL SSP SCH ×3 (08:44→17:30)
[2016-05-13] MEDS: amLODIPine 5 MG TAB PO SCH (08:45)
[2016-05-13] MEDS: guaiFENesin ER 600 MG TAB PO SCH ×2 (08:45→21:47)
[2016-05-13] MEDS: FLUTICASONE PROP 0.05% NASAL SPRAY 16 GM (FLONASE) SCH (08:46)
[2016-05-13] MEDS ORDERED: NS 1,000 ML IV SCH (10:45)
--- NOTE | 2016-05-13 11:24 | IPNPDOC ---
Assessment/Plan Date Seen The patient was seen on 05/13/16. Plan / VTE VTE Prophylaxis Ordered?: Yes Plan Plan Text 1. Acute encephalopathy possibly multifactorial in etiology. Thus far, no evidence of underlying infectious etiology Possibly related to Keppra as the patient's symptoms have coincided since the initiation of the drug-this has been withheld and Keppra level pending EEG pending to rule out underlying seizure-like activity, neurology input noted Underlying subdural hematoma, CT head and MRI of the brain noted-this appears to be chronic, unchanged-we will order imaging studies that were done on his previous hospitalization in [place] to compare Possibly related to underlying Waldenstrom's macroglobulinemia progression- hematology/oncology has been consulted for this and we will follow-up for the need of plasmapheresis whether done as an outpatient, or at another facility. Patient's mentation and appetite much improved as per patient and family who is at bedside. 2. Waldenstrom's macroglobulinemia. Immunoglobulin levels, serum viscosity, and beta-[address] Gamble of heme onc on board 3. Chronic leukopenia and anemia, stable. No acute indication for red blood cell transfusion. 4. 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 Appears to be stable on repeat CT Continue neurological checks Keppra has been discontinued at this time as it may have been causing the patient to be more lethargic EEG ordered to rule out underlying seizure-like activity Neurology on board Disposition-we will continue to have the patient work with physical therapy to further delineate whether the patient can return to [facility] upon medical clearance in the next 24-48 hours. Subjective Review of Systems CC/HPI The patient is a 76-year-old male admitted with a reason for visit of Acute Encephalopathy. General: Denies: Chills, Night Sweats Constitutional: Denies: Chills, Fever Eyes: Denies: Pain, Vision change ENT: Denies: Ear Pain, Head Aches Skin: Denies: Lesions, Rash Pulmonary: Denies: Cough, Dyspnea Cardiovascular: Denies: Chest Pain, Palpitations Gastrointestinal: Denies: Nausea, Vomiting Hematologic: Denies: Bleeding Excessively, Bruising Objective Physical Examination General Exam: Positive: Alert, Cooperative, No Acute Distress ENT Exam: Positive: Atraumatic, Mucous membr. moist/pink Chest Exam: Positive: Clear to auscultation, Normal air movement Heart Exam: Positive: Normal S1, Normal S2, Rate Normal Abdomen Exam: Positive: Soft, Negative: Tenderness Extremity Exam: Negative: Edema, Tenderness Vital Signs/I&O Vital Signs Date Time Temp Pulse Resp B/P Pulse Ox O2 Delivery O2 Flow Rate FiO2 05/13/16 08:45 106 122/65 05/13/16 04:00 96.0 18 94 Room Air I&O- Last 24 Hours up to 6 AM 05/13/16 06:00 Intake Total 980 ml Output Total 475 ml Balance 505 ml Laboratory Data Labs 24H Laboratory Tests 2 05/13/16 05:16: Anion Gap 8, Anisocytosis 1+, White Blood Count 3.9L, Red Blood Count 2.75L, Hemoglobin 8.8L, Hematocrit 27.3L, Mean Corpuscular Volume 99.5H, Mean Corpuscular Hemoglobin 32.0, Mean Corpuscular Hemoglobin Concent 32.1, Red Cell Distribution Width 17.8H, Platelet Count 151, Neutrophils (%) (Auto) , Lymphocytes (%) (Auto) , Monocytes (%) (Auto) , Eosinophils (%) (Auto) , Basophils (%) (Auto) , Neutrophils # (Auto) , Lymphocytes # (Auto) , Monocytes # (Auto) , Eosinophils # (Auto) , Basophils # (Auto) , Blood Urea Nitrogen 18, Creatinine 1.11, Sodium Level 141, Potassium Level 3.4L, Chloride Level 107, Carbon Dioxide Level 26, Calcium Level 8.5L, Eosinophils (Manual) 3, Glomerular Filtration Rate > 60.0, Large Unclassified Cells # , Large Unclassified Cells % , Lymphocytes (Manual) 45, Macrocytosis 1+, Magnesium Level 2.1, Monocytes ( Manual) 9H, Neutrophils 43, Platelet Estimate NORMAL, Rouleau 3+, Troponin I < 0.02 CBC/BMP Laboratory Tests 05/13/16 05:16 Calcium Level 8.5 L, Red Blood Count 2.75 L, Mean Corpuscular Volume 99.5 H, Mean Corpuscular Hemoglobin 32.0, Mean Corpuscular Hemoglobin Concent 32.1, Red Cell Distribution Width 17.8 H, Neutrophils (%) (Auto) , Lymphocytes (%) (Auto) , Monocytes (%) (Auto) , Eosinophils (%) (Auto) , Basophils (%) (Auto) , Neutrophils # (Auto) , Lymphocytes # (Auto) , Monocytes # (Auto) , Eosinophils # (Auto) , Basophils # (Auto) Microbiology Microbiology 05/10/16 Blood Culture - Preliminary, Resulted No Growth after 72 hours. All specime... 05/10/16 Blood Culture - Preliminary, Resulted No Growth after 72 hours. All specime... 05/11/16 Influenza Virus Type A Antigen - Final, Complete 05/11/16 Influenza Virus Type B Antigen - Final, Complete 05/11/16 Urine Culture - Final, Complete Staphylococcus Epidermidis DENVER ARITA MD May 13, 2016 11:23
--- NOTE | 2016-05-13 14:14 | ECGEPIP ---
Stationary ECG Study [facility] Test Date: 2016-05-13 Pat Name: DESIRAE BLACK Department: Room: [place] [address] Gender: M Detention Officer: : 1940 Requested By: MILAN Grier Order Number: [id number] Reading MD: Tani Del Cid Measurements Intervals [place] Rate: 86 P: 30 TX: 232 QRS: -40 QRSD: 104 T: 50 QT: 374 QTc: 450 Interpretive Statements SINUS RHYTHM WITH FIRST DEGREE AV BLOCK MARKED LEFT AXIS DEVIATION Borderline QTc prolongation Electronically Signed On 05-13-2016 14:13:49 EST by Tani Del Cid
[2016-05-14 00:32] VITALS: BP 140/75
[2016-05-14 04:12] VITALS: BP 129/71
[2016-05-14] MEDS: LevoFLOXacin 500 MG TABLET PO SCH (05:17)
[2016-05-14] MEDS: SLF 3 ML SYR IV SCH (05:18)
--- NOTE | 2016-05-14 05:23 | EEG ---
DATE OF PROCEDURE: 05/11/2016 REFERRING PHYSICIAN: Dr. Champ Smalls DIAGNOSIS: Seizure. EEG NUMBER: [id number]. HISTORY: Patient is a 76-year-old man with history of right frontal and parietal subdural hematoma who had a seizure after his head injury. He is currently on Keppra and is drowsy and irritable. This EEG was done to evaluate for epileptic potential and degree of encephalopathy. TECHNICAL DESCRIPTION: This digital EEG was recorded by 21 scalp ear and two EKG electrodes and was reviewed in bipolar and referential montages following reformatting in 10-20 international electrode placement system. INTERPRETATION: Patient was noted to be in awake and drowsy states during this EEG. Resting awake background consisted of 7-8 Hz theta activity measuring 15-40 microvolts in amplitude. Attenuation of posterior dominant rhythm was seen during transition into drowsiness. Stage I and II sleep were reviewed and sleep activity was more prominent in left frontal, central and parietal head region. Mild suppression was noted in the right cerebral hemisphere. Hyperventilation could not be performed. Photic stimulation remained unremarkable. EKG revealed normal sinus rhythm. No epileptiform abnormalities were seen. No clinical or electrographic seizures were recorded. CONCLUSION: This EEG in awake, drowsy states, stage I and II sleep is mildly abnormal due to presence of attenuation of cerebral activity in right frontal, parietal and temporal head region likely due to presence of right-sided subdural hematoma. In addition, mild generalized slowing was seen indicative of nonspecific diffuse cerebral dysfunction such as seen in mild encephalopathy due to multiple potential causes including toxic, metabolic, medication related, autoimmune, or multifocal structural abnormalities. No epileptiform abnormalities were seen. Clinical correlation is recommended.
[2016-05-14 05:31] LABS: BASO % 0.3 % (0.0-1.0); EOS # 0.2 K/mm3 (0.0-0.50); EOS % 5.8 % (0.0-3.0); LARGE UNSTAINED CELL # 0.2 K/mm3 (0.0-0.4); LARGE UNSTAINED CELL % 6.8 % (0.0-4.0); LYMPH # 0.8 K/mm3 (1.5-4.5); MEAN CORPUSCULAR HEMOGLOBIN 33.1 pg (27.0-33.0); MEAN CORPUSCULAR HGB CONC 33.7 g/dl (32.0-36.5); MONO # 0.1 K/mm3 (0.0-0.8); MONO % 5.5 % (0.0-5.0); NEUTROPHILS # 1.3 K/mm3 (1.8-7.7); NEUTROPHILS % 49.7 % (36.0-66.0); PLATELET COUNT, AUTOMATED 136 k/mm3 (150-450); RED CELL DISTRIBUTION WIDTH 16.6 % (11.5-14.5); WHITE BLOOD COUNT 2.5 K/mm3 (4.0-10.0)
[2016-05-14 06:02] LABS: ANION GAP 7 MEQ/L (8-16); BLOOD UREA NITROGEN 16 MG/DL (7-18); CALCIUM LEVEL 8.4 MG/DL (8.8-10.2); CARBON DIOXIDE LEVEL 26 MEQ/L (21-32); CHLORIDE LEVEL 106 MEQ/L (98-107); CREATININE FOR GFR 0.94 MG/DL (0.70-1.30); GLOMERULAR FILTRATION RATE > 60.0 (>42); GLUCOSE, FASTING 95 MG/DL (83-110); POTASSIUM SERUM 3.6 MEQ/L (3.5-5.1); SODIUM LEVEL 139 MEQ/L (136-145)
[2016-05-14] MEDS: guaiFENesin DM LIQ 10ML UD PO PRN ×2 (06:26→23:34)
[2016-05-14 08:00] VITALS: BP 129/70
[2016-05-14] MEDS: ALBUTEROL SULFATE 2.5 MG/0.5 ML INH NEB SOLN INH SCH ×4 (08:38→19:37)
[2016-05-14] MEDS: FLUTICASONE PROP 0.05% NASAL SPRAY 16 GM (FLONASE) SCH (09:26)
[2016-05-14] MEDS: amLODIPine 5 MG TAB PO SCH (09:27)
[2016-05-14] MEDS: DOCUSATE SODIUM 100 MG CAP PO SCH ×2 (09:27→19:59)
[2016-05-14] MEDS: guaiFENesin ER 600 MG TAB PO SCH ×2 (09:28→19:59)
[2016-05-14] MEDS: MAGIC MOUTHWASH SUSPENSION BTL SSP SCH ×3 (09:28→16:44)
--- NOTE | 2016-05-14 13:14 | IPNPDOC ---
Assessment/Plan Date Seen The patient was seen on 05/14/16. Plan / VTE VTE Prophylaxis Ordered?: Yes Plan Plan Text 1. Acute encephalopathy possibly multifactorial in etiology. Thus far, no evidence of underlying infectious etiology Possibly related to Keppra as the patient's symptoms have coincided since the initiation of the drug-this has been withheld EEG without epileptiform abnormalities noted. Underlying subdural hematoma, CT head and MRI of the brain noted-this appears to be chronic, unchanged-we will order imaging studies that were done on his previous hospitalization in [place] to compare Possibly related to underlying Waldenstrom's macroglobulinemia progression- hematology/oncology has been consulted for this and we will follow-up for the need of plasmapheresis whether done as an outpatient, or at another facility. Patient's mentation and appetite much improved as per patient and family who is at bedside. 2. Waldenstrom's macroglobulinemia. Immunoglobulin levels, serum viscosity, and beta-[address] Gamble of heme onc on board 3. Chronic leukopenia and anemia, stable. No acute indication for red blood cell transfusion. 4. 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 Appears to be stable on repeat CT Continue neurological checks Keppra has been discontinued at this time as it may have been causing the patient to be more lethargic EEG results as noted above Neurology on board Disposition-patient's mentation, appetite, and overall clinical condition back to baseline as per the patient and his family who is at the bedside. At this time, the family and the patient is trying to decide the patient's disposition home with services versus back to [facility]. Subjective Review of Systems CC/HPI The patient is a 76-year-old male admitted with a reason for visit of Acute Encephalopathy. General: Denies: Chills, Night Sweats Constitutional: Denies: Chills, Fever Eyes: Denies: Pain, Vision change ENT: Denies: Ear Pain, Head Aches Skin: Denies: Lesions, Rash Pulmonary: Denies: Cough, Dyspnea Cardiovascular: Denies: Chest Pain, Palpitations Gastrointestinal: Denies: Abdominal Pain, Nausea, Vomiting Hematologic: Denies: Bleeding Excessively, Bruising Neurological: Denies: Numbness, Weakness Objective Physical Examination General Exam: Positive: Alert, Cooperative, No Acute Distress ENT Exam: Positive: Atraumatic, Mucous membr. moist/pink Chest Exam: Positive: Clear to auscultation, Normal air movement Heart Exam: Positive: Normal S1, Normal S2, Rate Normal Abdomen Exam: Positive: Soft, Negative: Tenderness Extremity Exam: Negative: Edema, Tenderness Vital Signs/I&O Vital Signs Date Time Temp Pulse Resp B/P Pulse Ox O2 Delivery O2 Flow Rate FiO2 05/14/16 09:32 Room Air 05/14/16 09:27 86 129/70 05/14/16 08:00 97.4 18 95 I&O- Last 24 Hours up to 6 AM 05/14/16 06:00 Intake Total 1365 ml Output Total 470 ml Balance 895 ml Laboratory Data Labs 24H Laboratory Tests 2 05/14/16 04:58: Anion Gap 7L, White Blood Count 2.5L, Red Blood Count 2.36L, Hemoglobin 7.8L, Hematocrit 23.2L, Mean Corpuscular Volume 98.0H, Mean Corpuscular Hemoglobin 33.1H, Mean Corpuscular Hemoglobin Concent 33.7, Red Cell Distribution Width 16.6H, Platelet Count 136L, Neutrophils (%) (Auto) 49.7, Lymphocytes (%) (Auto) 32.0, Monocytes (%) (Auto) 5.5H, Eosinophils (%) (Auto) 5.8H, Basophils (%) ( Auto) 0.3, Neutrophils # (Auto) 1.3L, Lymphocytes # (Auto) 0.8L, Monocytes # ( Auto) 0.1, Eosinophils # (Auto) 0.2, Basophils # (Auto) 0.0, Blood Urea Nitrogen 16, Creatinine 0.94, Sodium Level 139, Potassium Level 3.6, Chloride Level 106, Carbon Dioxide Level 26, Calcium Level 8.4L, Glomerular Filtration Rate > 60.0, Large Unclassified Cells # 0.2, Large Unclassified Cells % 6.8H CBC/BMP Laboratory Tests 05/14/16 04:58 Calcium Level 8.4 L, Red Blood Count 2.36 L, Mean Corpuscular Volume 98.0 H, Mean Corpuscular Hemoglobin 33.1 H, Mean Corpuscular Hemoglobin Concent 33.7, Red Cell Distribution Width 16.6 H, Neutrophils (%) (Auto) 49.7, Lymphocytes (% ) (Auto) 32.0, Monocytes (%) (Auto) 5.5 H, Eosinophils (%) (Auto) 5.8 H, Basophils (%) (Auto) 0.3, Neutrophils # (Auto) 1.3 L, Lymphocytes # (Auto) 0.8 L , Monocytes # (Auto) 0.1, Eosinophils # (Auto) 0.2, Basophils # (Auto) 0.0 Microbiology Microbiology 05/10/16 Blood Culture - Preliminary, Resulted No Growth after 72 hours. All specime... 05/10/16 Blood Culture - Preliminary, Resulted No Growth after 72 hours. All specime... 05/11/16 Influenza Virus Type A Antigen - Final, Complete 05/11/16 Influenza Virus Type B Antigen - Final, Complete 05/11/16 Urine Culture - Final, Complete Staphylococcus Epidermidis DENVER ARITA MD May 14, 2016 13:14
[2016-05-14 14:45] VITALS: BP 129/71
[2016-05-14] MEDS: BENZONATATE 100 MG CAP PO PRN (16:44)
[2016-05-14] MEDS: ACETAMINOPHEN TAB 650MG DOSE (2X325MG) PO PRN (16:45)
[2016-05-14] MEDS: ANALGESIC BALM CRM 120 GM TOP PRN (16:45)
[2016-05-14 22:00] VITALS: BP 115/70
[2016-05-15] MEDS: guaiFENesin DM LIQ 10ML UD PO PRN ×3 (05:26→17:56)
[2016-05-15 06:00] VITALS: BP 144/83
[2016-05-15 06:52] LABS: BASO % 0.6 % (0.0-1.0); EOS # 0.2 K/mm3 (0.0-0.50); EOS % 4.8 % (0.0-3.0); LARGE UNSTAINED CELL # 0.2 K/mm3 (0.0-0.4); LARGE UNSTAINED CELL % 6.6 % (0.0-4.0); LYMPH # 1.2 K/mm3 (1.5-4.5); LYMPH % 30.7 % (24.0-44.0); MEAN CORPUSCULAR HEMOGLOBIN 31.1 pg (27.0-33.0); MEAN CORPUSCULAR HGB CONC 30.6 g/dl (32.0-36.5); MEAN CORPUSCULAR VOLUME 101.6 fl (80.0-96.0); MONO # 0.2 K/mm3 (0.0-0.8); MONO % 6.4 % (0.0-5.0); NEUTROPHILS # 1.6 K/mm3 (1.8-7.7); NEUTROPHILS % 50.9 % (36.0-66.0); PLATELET COUNT, AUTOMATED 142 k/mm3 (150-450); RED CELL DISTRIBUTION WIDTH 18.1 % (11.5-14.5); WHITE BLOOD COUNT 3.2 K/mm3 (4.0-10.0)
[2016-05-15 06:55] LABS: ANION GAP 9 MEQ/L (8-16); BLOOD UREA NITROGEN 16 MG/DL (7-18); CALCIUM LEVEL 8.6 MG/DL (8.8-10.2); CARBON DIOXIDE LEVEL 25 MEQ/L (21-32); CHLORIDE LEVEL 104 MEQ/L (98-107); CREATININE FOR GFR 0.98 MG/DL (0.70-1.30); GLOMERULAR FILTRATION RATE > 60.0 (>42); GLUCOSE, FASTING 95 MG/DL (83-110); POTASSIUM SERUM 3.3 MEQ/L (3.5-5.1); SODIUM LEVEL 138 MEQ/L (136-145)
[2016-05-15] MEDS: ALBUTEROL SULFATE 2.5 MG/0.5 ML INH NEB SOLN INH SCH ×4 (07:39→19:38)
[2016-05-15] MEDS: FLUTICASONE PROP 0.05% NASAL SPRAY 16 GM (FLONASE) SCH (09:00)
[2016-05-15] MEDS: DOCUSATE SODIUM 100 MG CAP PO SCH ×2 (09:18→19:49)
[2016-05-15] MEDS: guaiFENesin ER 600 MG TAB PO SCH ×2 (09:18→20:09)
[2016-05-15] MEDS: MAGIC MOUTHWASH SUSPENSION BTL SSP SCH ×3 (09:18→17:59)
[2016-05-15] MEDS: POTASSIUM CHLORIDE 10 MEQ SR TABLET PO SCH (09:18)
[2016-05-15] MEDS: amLODIPine 5 MG TAB PO SCH (09:18)
[2016-05-15 09:45] LABS: MAGNESIUM LEVEL 1.8 MG/DL (1.8-2.4)
[2016-05-15] MEDS: BENZONATATE 100 MG CAP PO PRN ×2 (12:33→17:57)
[2016-05-15] MEDS: SODIUM CHLORIDE NASAL 0.65% SPRAY BTL (OCEAN) PRN (12:34)
[2016-05-15 14:00] VITALS: BP 118/71
--- NOTE | 2016-05-15 15:47 | IPN ---
DATE: 05/15/2016 Patient seen and examined. No acute events overnight. Patient continued to report physically weak. Denies any fevers, chills, chest pain, pressure, or discomfort. Denies any abdominal pain. Nursing staff reported one episode of watery diarrhea during the day today. VITAL SIGNS: Temperature 98.5, pulse 86, respiration 19, blood pressure 144/93, pulse oximetry 95% on room air. LABORATORY DATA: WBC 3.2, hemoglobin and hematocrit 8/26, platelets 142. Chemistry: Sodium 138, potassium 3.3, chloride 104, bicarbonate 25, BUN 16, creatinine 0.98. PHYSICAL EXAM: GENERAL: Patient alert and oriented times three, in no acute distress. HEENT: Normocephalic, atraumatic. Moist mucous membranes. PULMONARY: Bilaterally clear to auscultation. No wheezes, rales, or rhonchi. CARDIAC: Regular rate and rhythm with normal S1, S2. ABDOMEN: Soft, nontender, and nondistended. EXTREMITIES: No edema of bilateral lower extremities. ASSESSMENT AND PLAN: This is a 76-year-old male patient with underlying medical history of Waldenstrom macroglobulinemia (follows with Dr. Gamble), paroxysmal atrial fibrillation, seizure, subdural hematoma March 2016, T3 compression fracture, hypertension, dyslipidemia, retinal detachment, allergic rhinitis, admitted with acute encephalopathy. PROBLEMS: 1. Acute encephalopathy, possibly multifactorial. EEGs appreciated. Neurology consulted. Possibly related to Keppra. Keppra has been discontinued. Appreciate neurology's assistance. CT head and MRI appreciated. Underlying subdural hematoma, chronic, unchanged. Hematology/oncology consulted for Waldenstrom macroglobulinemia. Recommended followup as outpatient. Patient's mental status has improved, returning to baseline. Continue physical therapy. 2. Waldenstrom macroglobulinemia. Immunoglobulin levels, serum viscosity, beta-2 microglobulin studies have ordered. Appreciate Dr. Gamble's assistance for hematology/oncology. Recommend outpatient followup as per Dr. Gamble. 3. Chronic leukemia and anemia, currently stable. Followup complete blood counts (CBCs). 4. History of subdural hematoma with posttraumatic seizure. Was on Keppra. CT scan appears to be stable. Neurologic checks. Keppra has been discontinued as per neurology. EEGs appreciated. 5. Hypokalemia. Followup electrolytes. Supplement as needed. 6. Diarrhea. Followup Clostridium (C) difficile. 7. Deep venous thrombosis (DVT) prophylaxis. Sequential compression device. History of subdural hematoma. We will avoid pharmacological anticoagulation. 8. Hypertension. Continue Norvasc. 9. History of paroxysmal atrial fibrillation. Sinus rhythm during hospital course. Avoid anticoagulation given intracranial bleed. 10. Severe protein-calorie malnutrition. Daily weight. Ensure supplementation. Continue to follow. DISPOSITION: Pending physical therapy, clinical improvement, C. Difficile. PROGNOSIS: Guarded. Edited: esa 05/15/2016 [id number]
[2016-05-15] MEDS: ONDANSETRON 4 MG ORAL DISINTEGRATING TAB (S0181) PO PRN (16:09)
[2016-05-15] MEDS: ACETAMINOPHEN TAB 650MG DOSE (2X325MG) PO PRN (17:58)
[2016-05-15] MEDS: ANALGESIC BALM CRM 120 GM TOP PRN (17:59)
[2016-05-15 22:00] VITALS: BP 122/60
[2016-05-16 00:09] LABS: BETA 2 MICROGLOBULIN 2.8 mg/L (0.6-2.4); IMMUNOGLOBULIN D 0.26 mg/dL (<14.11)
[2016-05-16 06:00] VITALS: BP 120/73
[2016-05-16 06:39] LABS: MEAN CORPUSCULAR HEMOGLOBIN 32.2 pg (27.0-33.0); MEAN CORPUSCULAR HGB CONC 31.8 g/dl (32.0-36.5); MEAN CORPUSCULAR VOLUME 101.4 fl (80.0-96.0); RED CELL DISTRIBUTION WIDTH 18.2 % (11.5-14.5); WHITE BLOOD COUNT 2.9 K/mm3 (4.0-10.0)
[2016-05-16 06:55] LABS: ANION GAP 9 MEQ/L (8-16); BLOOD UREA NITROGEN 16 MG/DL (7-18); CALCIUM LEVEL 8.5 MG/DL (8.8-10.2); CARBON DIOXIDE LEVEL 25 MEQ/L (21-32); CHLORIDE LEVEL 102 MEQ/L (98-107); CREATININE FOR GFR 0.89 MG/DL (0.70-1.30); GLOMERULAR FILTRATION RATE > 60.0 (>42); GLUCOSE, FASTING 94 MG/DL (83-110); MAGNESIUM LEVEL 1.7 MG/DL (1.8-2.4); POTASSIUM SERUM 3.5 MEQ/L (3.5-5.1); SODIUM LEVEL 136 MEQ/L (136-145)
[2016-05-16] MEDS: ALBUTEROL SULFATE 2.5 MG/0.5 ML INH NEB SOLN INH SCH ×4 (07:17→19:38)
[2016-05-16] MEDS: DOCUSATE SODIUM 100 MG CAP PO SCH ×2 (08:23→20:09)
[2016-05-16] MEDS: MAGIC MOUTHWASH SUSPENSION BTL SSP SCH ×3 (08:23→16:30)
[2016-05-16] MEDS: POTASSIUM CHLORIDE 10 MEQ SR TABLET PO SCH (08:24)
[2016-05-16] MEDS: ONDANSETRON 4 MG ORAL DISINTEGRATING TAB (S0181) PO PRN (08:24)
[2016-05-16] MEDS: MAGNESIUM OXIDE 400 MG TAB (MAG-OX) PO SCH ×3 (08:25→20:18)
[2016-05-16] MEDS: guaiFENesin ER 600 MG TAB PO SCH ×2 (08:25→20:17)
[2016-05-16] MEDS: BENZONATATE 100 MG CAP PO PRN ×2 (08:26→16:29)
[2016-05-16] MEDS: FLUTICASONE PROP 0.05% NASAL SPRAY 16 GM (FLONASE) SCH (08:26)
[2016-05-16] MEDS: guaiFENesin DM LIQ 10ML UD PO PRN ×2 (08:26→16:30)
[2016-05-16] MEDS: amLODIPine 5 MG TAB PO SCH (08:28)
--- NOTE | 2016-05-16 15:23 | IPN ---
DATE: 05/16/2016 The patient is seen and examined. No acute events overnight. Currently undergoing physical therapy. Denies any fevers, chills, chest pain, pressure or discomfort. Denies any abdominal pain. One episode of bowel movement today, as per patient was watery. The patient on average goes once a day. VITAL SIGNS: Temperature 98.5, pulse 89, respiration 19, blood pressure 118/68, pulse oximetry 95% on room air. LABORATORY DATA: WBC 2.9, hemoglobin and hematocrit 8/25.1, platelets 138. Chemistry: Sodium 136, potassium 3.5, chloride 102, bicarbonate 25, BUN 16, creatinine 0.89, magnesium 1.7. PHYSICAL EXAMINATION: GENERAL: Patient alert and oriented times three, in no acute distress. HEENT: Normocephalic, atraumatic. Moist mucous membranes. PULMONARY: Bilaterally clear to auscultation. No wheezes, rales, or rhonchi. CARDIAC: Regular rate and rhythm with normal S1, S2. ABDOMEN: Soft, nontender, and nondistended. EXTREMITIES: No edema of bilateral lower extremities. ASSESSMENT AND PLAN: This is a 76-year-old male patient with underlying medical history of Waldenstrom macroglobulinemia (follows with Dr. Gamble), paroxysmal atrial fibrillation, seizure, subdural hematoma March 2016, T3 compression fracture, hypertension, dyslipidemia, retinal detachment, allergic rhinitis, admitted for acute encephalopathy. PROBLEMS: 1. Acute encephalopathy, likely multifactorial. EEG appreciated. Neurology consulted. Possibly related to Keppra. Keppra has been discontinued. Appreciate neurology's assistance. CT head and MRI appreciated, showing underlying subdural hematoma unchanged. Hematology/oncology consulted for Waldenstrom macroglobulinemia. Recommended followup as outpatient. No acute intervention at this time. Patient's mental status progressively improved, returning to baseline. Continue physical therapy. 2. Waldenstrom macroglobulinemia. Immunoglobulin levels, serum viscosity, beta-2 microglobulin studies have ordered. Appreciate Dr. Gamble's assistance from hematology/oncology. Recommend outpatient followup with Dr. Gamble. 3. Chronic leukopenia and anemia, currently stable. Followup blood counts. Transfuse as needed. 4. History of subdural hematoma with posttraumatic seizure. Was on Keppra. CT scan appreciated to be stable. Neurologic checks. Keppra has been discontinued as per neurology. EEG appreciated. 5. Hypokalemia. Followup electrolytes, magnesium and potassium, supplement as needed. 6. Diarrhea. The patient only has one bowel movement a day. We will continue to follow. Followup Clostridium (C) difficile. 7. Hypertension. Continue blood pressure medication as ordered. 8. History of paroxysmal atrial fibrillation. Currently sinus rhythm during this hospital course. Avoid anticoagulation given intracranial bleed. 9. Severe protein-calorie malnutrition. Daily weight. Ensure supplementation. Calorie counts. Continue to follow. 10. Deep venous thrombosis (DVT) prophylaxis. Sequential compression device given recent subdural hematoma. We will avoid pharmacological anticoagulation. DISPOSITION: Pending physical therapy. PROGNOSIS: Guarded.
[2016-05-16] MEDS: ANALGESIC BALM CRM 120 GM TOP PRN (16:36)
[2016-05-16] MEDS: DRONABINOL 2.5 MG CAP (MARINOL) PO SCH ×2 (18:24→20:17)
[2016-05-16 22:00] VITALS: BP 127/69
[2016-05-17] MEDS: BENZONATATE 100 MG CAP PO PRN (01:31)
[2016-05-17] MEDS: guaiFENesin DM LIQ 10ML UD PO PRN ×2 (02:03→13:52)
[2016-05-17] MEDS: SODIUM CHLORIDE NASAL 0.65% SPRAY BTL (OCEAN) PRN (02:03)
[2016-05-17 06:00] VITALS: BP 132/75
[2016-05-17 06:27] LABS: MEAN CORPUSCULAR HEMOGLOBIN 33.3 pg (27.0-33.0); MEAN CORPUSCULAR HGB CONC 33.8 g/dl (32.0-36.5); MEAN CORPUSCULAR VOLUME 98.5 fl (80.0-96.0); WHITE BLOOD COUNT 3.2 K/mm3 (4.0-10.0)
[2016-05-17 07:00] LABS: ANION GAP 7 MEQ/L (8-16); BLOOD UREA NITROGEN 18 MG/DL (7-18); CALCIUM LEVEL 8.5 MG/DL (8.8-10.2); CARBON DIOXIDE LEVEL 26 MEQ/L (21-32); CHLORIDE LEVEL 102 MEQ/L (98-107); CREATININE FOR GFR 1.01 MG/DL (0.70-1.30); GLOMERULAR FILTRATION RATE > 60.0 (>42); GLUCOSE, FASTING 97 MG/DL (83-110); MAGNESIUM LEVEL 2.1 MG/DL (1.8-2.4); POTASSIUM SERUM 3.9 MEQ/L (3.5-5.1); SODIUM LEVEL 135 MEQ/L (136-145)
[2016-05-17] MEDS: ALBUTEROL SULFATE 2.5 MG/0.5 ML INH NEB SOLN INH SCH ×4 (07:53→20:00)
[2016-05-17] MEDS: DOCUSATE SODIUM 100 MG CAP PO SCH ×2 (09:58→20:56)
[2016-05-17] MEDS: POTASSIUM CHLORIDE 10 MEQ SR TABLET PO SCH (09:58)
[2016-05-17] MEDS: amLODIPine 5 MG TAB PO SCH (09:58)
[2016-05-17] MEDS: MAGNESIUM OXIDE 400 MG TAB (MAG-OX) PO SCH ×3 (09:58→20:56)
[2016-05-17] MEDS: guaiFENesin ER 600 MG TAB PO SCH ×2 (09:58→20:56)
[2016-05-17] MEDS: DRONABINOL 2.5 MG CAP (MARINOL) PO SCH ×3 (09:59→20:56)
[2016-05-17] MEDS: MAGIC MOUTHWASH SUSPENSION BTL SSP SCH ×3 (10:05→17:34)
[2016-05-17] MEDS: FLUTICASONE PROP 0.05% NASAL SPRAY 16 GM (FLONASE) SCH (10:05)
[2016-05-17] MEDS: ONDANSETRON 4 MG ORAL DISINTEGRATING TAB (S0181) PO PRN (10:09)
[2016-05-17 14:00] VITALS: BP 119/67
--- NOTE | 2016-05-17 17:53 | IPN ---
DATE: 05/17/2016 Patient seen and examined. No acute events overnight. Reported taking breakfast. Denies any fevers, chills, chest pain, pressure, discomfort. Reported nausea. Persistent relief with Zofran. Vital signs: Temperature 98.1, pulse 82, respiration 18, blood pressure 119/67, pulse ox 97% on room air. LABORATORY DATA: WBC 3.2, H H 8/23.8, platelets 155. Chemistry: Sodium 135, potassium 3.9, chloride 102, bicarbonate 26, BUN 18, creatinine 1.01. PHYSICAL EXAMINATION: Patient alert and oriented times three in no acute distress. HEENT: Normocephalic, atraumatic. Moist mucous membranes. PULMONARY: Bilaterally clear to auscultation. No wheeze, rales or rhonchi. CARDIAC: Regular rate and rhythm. Normal S1, S2. ABDOMEN: Soft, non-tender, non-distended. EXTREMITIES: No edema bilateral lower extremities. ASSESSMENT AND PLAN: This is a 76-year-old male patient with underlying medical history of Waldenstrom's macroglobulin anemia follows with Dr. Gamble, paroxysmal atrial fibrillation, seizure, subdural hematoma in March 2016, T3 compression fraction, hypertension, dyslipidemia, rectal detachment, allergic rhinitis admitted initially for acute enteropathy. PROBLEM: 1. Acute encephalopathy likely multifactorial. EEG appreciated. Neurology consulted. Possibly related to Keppra. Keppra has been discontinued. Appreciate neurology assistance. CT head and MRI appreciated. Show underling subdural hematoma unchanged. Hematology/oncology consulted for Waldenstrom's macroglobulin anemia. Recommend follow up as outpatient. No acute intervention at this time. Patient's mental status has been returning to baseline. Continue physical therapy. 2. Waldenstrom 's macroglobulinemia. Immunoglobulin levels, serum viscosity, beta-2 microglobulin studies has been appreciated. Dr. Gamble recommended outpatient follow up. 3. Chronic leukopenia and anemia, currently stable. Followup blood counts. Transfuse as needed. 4. History of subdural hematoma with posttraumatic seizure. Was on Keppra. CT scan appreciated. Stable neurologic checks. Keppra has been discontinued as per neurology. EEG appreciated. 5. Hypokalemia. Followup electrolytes, magnesium and potassium, supplement as needed. 6. Diarrhea. The patient only has one bowel movement that was loose. Continue to follow. Follow up Clostridium (C) difficile. 7. Hypertension. Continue blood pressure medication as ordered. 8. History of paroxysmal atrial fibrillation. Currently sinus rhythm during the hospital course. Avoid anticoagulation given patient has intracranial bleed. 9. Severe protein-calorie malnutrition. Daily weight. Ensure supplementation. Calorie counts. Dietary consultation. Marinol has been ordered. Patient is not consuming enough calories. Option of percutaneous endoscopic gastrostomy feeding has been discussed with patient's family. 10. Deep venous thrombosis (DVT) prophylaxis. Sequential compression device given subdural hematoma. We will avoid pharmacological anticoagulation. DISPOSITION: Pending physical therapy. PROGNOSIS: Patient with multiple comorbidities and failure to thrive. 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
[2016-05-17 22:00] VITALS: BP_SYST 108; BP_SYST 131; BP_DIAS 58; BP_DIAS 76
[2016-05-18] MEDS: guaiFENesin DM LIQ 10ML UD PO PRN (01:58)
[2016-05-18 06:00] VITALS: BP 127/74
[2016-05-18 07:20] LABS: MEAN CORPUSCULAR HEMOGLOBIN 32.3 pg (27.0-33.0); MEAN CORPUSCULAR HGB CONC 32.5 g/dl (32.0-36.5); MEAN CORPUSCULAR VOLUME 99.1 fl (80.0-96.0); WHITE BLOOD COUNT 2.7 K/mm3 (4.0-10.0)
[2016-05-18] MEDS: ALBUTEROL SULFATE 2.5 MG/0.5 ML INH NEB SOLN INH SCH ×4 (07:20→19:36)
[2016-05-18 07:30] LABS: ANION GAP 7 MEQ/L (8-16); BLOOD UREA NITROGEN 17 MG/DL (7-18); CALCIUM LEVEL 8.8 MG/DL (8.8-10.2); CARBON DIOXIDE LEVEL 27 MEQ/L (21-32); CHLORIDE LEVEL 103 MEQ/L (98-107); CREATININE FOR GFR 0.97 MG/DL (0.70-1.30); GLOMERULAR FILTRATION RATE > 60.0 (>42); GLUCOSE, FASTING 91 MG/DL (83-110); MAGNESIUM LEVEL 2.5 MG/DL (1.8-2.4); SODIUM LEVEL 137 MEQ/L (136-145)
[2016-05-18] MEDS ORDERED: E-Z-GAS II EFFERVESCENT PACKET (SODIUM BICARB./CITRIC ACID/SIMETHICONE) As Ordered ONE (08:03)
[2016-05-18] MEDS ORDERED: E-Z-PAQUE 96% w/w SUSP 176GM BTL As Ordered ONE ×2 (08:03→08:33)
[2016-05-18] MEDS ORDERED: E-Z-HD 98% w/w 340GM SUSP BTL As Ordered ONE (08:03)
[2016-05-18] MEDS: MAGNESIUM OXIDE 400 MG TAB (MAG-OX) PO SCH ×2 (09:00→10:51)
[2016-05-18] MEDS: MAGIC MOUTHWASH SUSPENSION BTL SSP SCH ×3 (10:09→17:39)
[2016-05-18] MEDS: guaiFENesin ER 600 MG TAB PO SCH ×2 (10:51→20:08)
[2016-05-18] MEDS: DOCUSATE SODIUM 100 MG CAP PO SCH ×2 (10:51→20:08)
[2016-05-18] MEDS: BENZONATATE 100 MG CAP PO PRN (10:51)
[2016-05-18] MEDS: DRONABINOL 2.5 MG CAP (MARINOL) PO SCH ×3 (10:52→20:08)
[2016-05-18] MEDS: amLODIPine 5 MG TAB PO SCH (10:52)
[2016-05-18] MEDS: POTASSIUM CHLORIDE 10 MEQ SR TABLET PO SCH (10:52)
[2016-05-18] MEDS: FLUTICASONE PROP 0.05% NASAL SPRAY 16 GM (FLONASE) SCH (10:53)
--- NOTE | 2016-05-18 13:35 | REP ---
Chest x-ray: Two views. History: Question pneumonia. Comparison chest x-ray is from May 10, 2016. Findings: The lungs are symmetrically aerated and clear. Pleural angles are sharp. Heart size is normal. There is a pectus excavatum visible on lateral film. Impression: No infiltrate seen. Signed by Yo Ospina MD 05/18/2016 02:42 P
[2016-05-18 14:00] VITALS: BP 121/68
--- NOTE | 2016-05-18 18:37 | REP ---
UPPER GI, SINGLE CONTRAST: The procedure was performed under the direct supervision of Dr. Ospina. The images were reviewed with Dr. Ospina. The aircraft technician film shows no organomegaly or pathological masses. The intestinal gas pattern is nonspecific. There are degenerative changes of the spine. The patient is status-post right hip arthroplasty. The exam is limited due to patient mobility. Liquid barium was administered in the supine-oblique position. The oral and pharyngeal stages of deglutition are unremarkable. During esophageal transport there are tertiary waves demonstrated with to and from motion. There is no evidence of esophagitis, stricture, mucosal ring or hiatal hernia. Gastroesophageal reflux is not demonstrated on this examination. The stomach is grossly normal. The rugal folds are smooth and regular. There is no evidence of gastritis, neoplasm or ulcer disease. In the post-bulbar duodenum there are thickened folds without evidence of ulcer. The remainder of the duodenum is unremarkable. The barium column was followed to the small bowel to the level of the terminal ileum. Small bowel transit time was approximately 30 minutes. Ballottement was performed by Dr. Ospina. During fluoroscopy gentle palpation shows all loops are freely movable and pliable. There are no fixed or angulated loops. The small bowel mucosal pattern is normal in course and caliber. There is no transition to suggest a partial small bowel obstruction. Spot filming of the terminal ileum shows it to be unremarkable. IMPRESSION: 1. Tertiary waves with to and from motion. 2. In the post bulbar duodenum there are thickened folds without evidence of ulcer. 3 minutes and 11 seconds of fluoroscopic time was utilized for this procedure. Reviewed by SUKHI Zacarias 05/21/2016 05:11 PEdited and Signed by Yo Ospina MD 05/21/2016 05:13 P
--- NOTE | 2016-05-18 21:00 | IPN ---
DATE: 05/18/2016 Patient seen and examined. Continues to be weak, has poor oral intake. Denies any chest pain, pressure, discomfort. The patient stated that his hearing aid battery was and therefore cannot hear very well. Vital signs: Temperature 97.4, pulse 78, respirations 22, blood pressure 121/68, pulse oxymetry 93% on room air. LABORATORY DATA: WBC 2.7, hemoglobin and hematocrit 8.3/25.4, platelets 141. Chemistry: Sodium 137, potassium 4, chloride 103, bicarbonate 27, BUN 17, creatinine 0.97. PHYSICAL EXAMINATION: GENERAL: Patient alert and oriented times three. Weak. In no acute distress. HEENT: Normocephalic, atraumatic. Moist mucous membranes. PULMONARY: Bilaterally clear to auscultation. No wheeze, rales or rhonchi. CARDIAC: Regular rate and rhythm. Normal S1, S2. ABDOMEN: Soft, nontender, nondistended. EXTREMITIES: No edema bilateral lower extremities. ASSESSMENT AND PLAN: This is a 76-year-old male patient with underlying medical history of Waldenstrom's macroglobulinemia follows with Dr. Gamble, paroxysmal atrial fibrillation, seizure, subdural hematoma in March 2016, T3 compression fraction, hypertension, dyslipidemia, retinal detachment, allergic rhinitis admitted initially for acute encephalopathy. PROBLEM: 1. Acute encephalopathy, likely multifactorial. EEG appreciated. Neurology consulted. Possibly related to Keppra. Keppra has been discontinued as per neurology. Appreciate neurology assistance. CT head and MRI appreciated, shows underling subdural hematoma, unchanged. Hematology/oncology consulted for Waldenstrom's macroglobulinemia. Recommend followup as outpatient. No acute intervention at this time. Patient's mental status has been returning to baseline. Continue physical therapy. 2. Waldenstrom 's macroglobulinemia. Immunoglobulin level, serum viscosity, beta-2 microglobulin studies have been appreciated. Dr. Gamble recommended outpatient follow up. 3. Chronic leukopenia and anemia, currently stable. Continue to follow complete blood count (CBC), can transfuse as needed. 4. History of subdural hematoma with posttraumatic seizure. Was on Keppra. CT scan appreciated. Currently stable neurologic checks. Keppra has been discontinued as per neurology. EEG appreciated. 5. Hypokalemia. Followup electrolytes, magnesium and potassium, supplement as needed. 6. Diarrhea. The patient had a watery bowel movement, but currently is only one time per day. Followup Clostridium (C) difficile. 7. Hypertension. Continue blood pressure medication as ordered. 8. History of paroxysmal atrial fibrillation. Currently in sinus rhythm during this hospital stay. Avoid anticoagulation given patient has intracranial bleed. 9. Severe protein-calorie malnutrition. Daily weight. Ensure supplementation. Calorie counts. Dietary consultation. Marinol for appetite stimulation. Option of feeding tube has been discussed with the family and refused. 10. Nausea. Upper GI series appreciated to be negative. 11. Deep venous thrombosis (DVT) prophylaxis. Sequential compression device. Given patient with recent subdural hematoma, avoid pharmacological anticoagulation. DISPOSITION: Pending physical therapy, clinic improvement. The patient would like to return home. PROGNOSIS: Given multiple comorbidities and failure to thrive, poor long-term prognosis.
[2016-05-18 22:00] VITALS: BP 116/62
[2016-05-19] MEDS: guaiFENesin DM LIQ 10ML UD PO PRN ×3 (01:19→18:18)
[2016-05-19 06:00] VITALS: BP 122/66
[2016-05-19 06:43] LABS: ANION GAP 6 MEQ/L (8-16); BLOOD UREA NITROGEN 18 MG/DL (7-18); CALCIUM LEVEL 8.7 MG/DL (8.8-10.2); CARBON DIOXIDE LEVEL 27 MEQ/L (21-32); CHLORIDE LEVEL 104 MEQ/L (98-107); CREATININE FOR GFR 1.04 MG/DL (0.70-1.30); GLOMERULAR FILTRATION RATE > 60.0 (>42); GLUCOSE, FASTING 96 MG/DL (83-110); MAGNESIUM LEVEL 2.4 MG/DL (1.8-2.4); POTASSIUM SERUM 4.2 MEQ/L (3.5-5.1); SODIUM LEVEL 137 MEQ/L (136-145)
[2016-05-19 06:58] LABS: MEAN CORPUSCULAR HEMOGLOBIN 32.4 pg (27.0-33.0); MEAN CORPUSCULAR HGB CONC 32.5 g/dl (32.0-36.5); MEAN CORPUSCULAR VOLUME 99.9 fl (80.0-96.0); RED CELL DISTRIBUTION WIDTH 17.1 % (11.5-14.5); WHITE BLOOD COUNT 2.6 K/mm3 (4.0-10.0)
[2016-05-19] MEDS: ALBUTEROL SULFATE 2.5 MG/0.5 ML INH NEB SOLN INH SCH ×4 (07:46→19:42)
[2016-05-19] MEDS: amLODIPine 5 MG TAB PO SCH (07:54)
[2016-05-19] MEDS: POTASSIUM CHLORIDE 10 MEQ SR TABLET PO SCH (07:58)
[2016-05-19] MEDS: DOCUSATE SODIUM 100 MG CAP PO SCH ×2 (07:58→20:13)
[2016-05-19] MEDS: MAGIC MOUTHWASH SUSPENSION BTL SSP SCH ×3 (07:58→17:27)
[2016-05-19] MEDS: DRONABINOL 2.5 MG CAP (MARINOL) PO SCH ×3 (07:58→20:13)
[2016-05-19] MEDS: guaiFENesin ER 600 MG TAB PO SCH ×2 (07:58→20:13)
[2016-05-19] MEDS: FLUTICASONE PROP 0.05% NASAL SPRAY 16 GM (FLONASE) SCH (07:59)
[2016-05-19 14:00] VITALS: BP 123/70
[2016-05-19 22:00] VITALS: BP 111/57
[2016-05-20] MEDS: guaiFENesin DM LIQ 10ML UD PO PRN (03:37)
[2016-05-20 06:00] VITALS: BP 144/81
[2016-05-20 06:39] LABS: ANION GAP 7 MEQ/L (8-16); BLOOD UREA NITROGEN 18 MG/DL (7-18); CALCIUM LEVEL 8.8 MG/DL (8.8-10.2); CARBON DIOXIDE LEVEL 28 MEQ/L (21-32); CHLORIDE LEVEL 102 MEQ/L (98-107); GLOMERULAR FILTRATION RATE > 60.0 (>42); GLUCOSE, FASTING 93 MG/DL (83-110); MAGNESIUM LEVEL 2.4 MG/DL (1.8-2.4); POTASSIUM SERUM 4.1 MEQ/L (3.5-5.1); SODIUM LEVEL 137 MEQ/L (136-145)
[2016-05-20 06:43] LABS: MEAN CORPUSCULAR HEMOGLOBIN 32.9 pg (27.0-33.0); MEAN CORPUSCULAR HGB CONC 32.8 g/dl (32.0-36.5); MEAN CORPUSCULAR VOLUME 100.1 fl (80.0-96.0); RED CELL DISTRIBUTION WIDTH 17.3 % (11.5-14.5); WHITE BLOOD COUNT 2.2 K/mm3 (4.0-10.0)
[2016-05-20] MEDS: ALBUTEROL SULFATE 2.5 MG/0.5 ML INH NEB SOLN INH SCH ×4 (07:21→19:41)
[2016-05-20] MEDS: POTASSIUM CHLORIDE 10 MEQ SR TABLET PO SCH (08:44)
[2016-05-20] MEDS: guaiFENesin ER 600 MG TAB PO SCH ×2 (08:44→20:17)
[2016-05-20] MEDS: amLODIPine 5 MG TAB PO SCH (08:44)
[2016-05-20] MEDS: DOCUSATE SODIUM 100 MG CAP PO SCH ×2 (08:45→20:17)
[2016-05-20] MEDS: MAGIC MOUTHWASH SUSPENSION BTL SSP SCH ×3 (08:45→15:56)
[2016-05-20] MEDS: FLUTICASONE PROP 0.05% NASAL SPRAY 16 GM (FLONASE) SCH (08:45)
[2016-05-20] MEDS: DRONABINOL 2.5 MG CAP (MARINOL) PO SCH ×3 (08:45→20:16)
--- NOTE | 2016-05-20 09:27 | IPN ---
DATE OF SERVICE: 05/19/2016 The patient seen and examined. No acute events overnight. The patient continues to have poor appetite. Denies any chest pain, pressure, discomfort. Denies any fevers or chills. VITAL SIGNS: Temperature 98.7, pulse 71, respiration 18, blood pressure 123/70, pulse oxymetry 95% on room air. LABORATORY: WBC 2.6, hemoglobin and hematocrit 8.4/25.7, platelets 139. Chemistry: Sodium 137, potassium 4.2, chloride 104, bicarbonate 27, BUN 18, creatinine 1.04. PHYSICAL EXAMINATION: The patient alert and oriented times three. Weak. In no acute distress. HEENT: Normocephalic, atraumatic. Moist mucous membranes. PULMONARY: Bilaterally clear to auscultation. No wheeze, rales, or rhonchi. CARDIAC: Regular rate and rhythm. Normal S1, S2. ABDOMEN: Soft, nontender, nondistended. Positive bowel sounds. EXTREMITIES: No edema bilateral lower extremities. ASSESSMENT AND PLAN: This is a 76-year-old male patient with underlying medical history of Waldenstrom macroglobulinemia, follows with Dr. Gamble, paroxysmal atrial fibrillation, seizure disorder secondary to subdural hematoma in March 2016, T3 compression fracture, hypertension, dyslipidemia, retinal detachment, allergic rhinitis admitted initially for acute encephalopathy. PROBLEMS: 1. Acute encephalopathy, likely multifactorial. Electroencephalogram (EEG) appreciated. Neurology consulted. Possibly related to Keppra. Keppra has been discontinued, as per neurology. Appreciate neurological assistance. CT head and MRI appreciated, showing underling subdural hematoma, unchanged from previous. Hematology/oncology consulted for Waldenstrom macroglobulinemia. Recommend outpatient followup. No acute intervention at this time. The patient's mental status has been returning to baseline. Continue physical therapy. 2. Waldenstrom macroglobulinemia. Immunoglobulin level, serum viscosity, beta-2 microglobulin studies have been appreciated. Dr. Gamble recommended outpatient followup. 3. Chronic leukopenia and anemia, currently stable. Continue to follow complete blood count (CBC). Transfuse as needed. 4. History of subdural hematoma with posttraumatic seizure. Initially was on Keppra. Discontinue, as per neurology, given side effects. CT appreciated. Currently stable. EEG appreciated. 5. Hypokalemia. Supplement electrolytes. Continue followup with magnesium and potassium. 6. Diarrhea. The patient had a watery bowel movement, but it was only once a day. Continue to follow. Clostridium (C) difficile was ordered. 7. Hypertension. Continue blood pressure medication as ordered. 8. History of paroxysmal atrial fibrillation. Currently in sinus rhythm. Avoid anticoagulation, given the patient with intracranial bleed. 9. Severe protein-calorie malnutrition. Daily weight. Ensure supplementation. Dietary consultation. Marinol for appetite stimulation. Option of feeding tube has been discussed with the family, and the patient refused. 10. Nausea. Upper gastrointestinal (GI) series appreciated to be negative. 11. Deep venous thrombosis (DVT) prophylaxis. Sequential compression device, given the patient with recent subdural hematoma. Avoid pharmacological agent. DISPOSITION: Physical therapy, clinic improvement. The patient would like to return home. PROGNOSIS: The patient with multiple comorbidities, failure to thrive, severe protein-calorie malnutrition. Poor long-term prognosis.
[2016-05-20 14:00] VITALS: BP 76/48
[2016-05-20 14:30] VITALS: BP 85/56
[2016-05-20 14:50] VITALS: BP 89/60
[2016-05-20 16:38] VITALS: BP 100/59
[2016-05-20 22:00] VITALS: BP 107/55
[2016-05-21 06:00] VITALS: BP 145/83
[2016-05-21] MEDS: guaiFENesin DM LIQ 10ML UD PO PRN (06:01)
[2016-05-21 06:21] LABS: MEAN CORPUSCULAR HGB CONC 33.1 g/dl (32.0-36.5); MEAN CORPUSCULAR VOLUME 99.9 fl (80.0-96.0); RED CELL DISTRIBUTION WIDTH 17.3 % (11.5-14.5); WHITE BLOOD COUNT 2.9 K/mm3 (4.0-10.0)
[2016-05-21 06:38] LABS: ANION GAP 8 MEQ/L (8-16); BLOOD UREA NITROGEN 19 MG/DL (7-18); CALCIUM LEVEL 8.8 MG/DL (8.8-10.2); CARBON DIOXIDE LEVEL 26 MEQ/L (21-32); CHLORIDE LEVEL 102 MEQ/L (98-107); CREATININE FOR GFR 0.96 MG/DL (0.70-1.30); GLOMERULAR FILTRATION RATE > 60.0 (>42); GLUCOSE, FASTING 93 MG/DL (83-110); MAGNESIUM LEVEL 2.2 MG/DL (1.8-2.4); POTASSIUM SERUM 3.9 MEQ/L (3.5-5.1); SODIUM LEVEL 136 MEQ/L (136-145)
--- NOTE | 2016-05-21 07:20 | IPN ---
DATE: 05/20/2016 The patient seen and examined. No acute events overnight. Denies any fevers, chills, chest pain, pressure, or discomfort. VITAL SIGNS: Temperature 99, pulse 71, respirations 18, blood pressure 100/59, pulse oxymetry 97% on room air. LABORATORY: WBC 2.2, hemoglobin and hematocrit 8.3/25.4, platelets 144. Chemistry: Sodium 137, potassium 4.1, chloride 102, bicarbonate 28, BUN 18, creatinine 1. PHYSICAL EXAMINATION: GENERAL: The patient alert and oriented times three in no acute distress. Weak. HEENT: Normocephalic, atraumatic. Moist mucous membranes. PULMONARY: Bilaterally clear to auscultation. No wheeze, rales or rhonchi. CARDIAC: Regular rate and rhythm. Normal S1, S2. ABDOMEN: Soft, nontender, nondistended. Positive bowel sounds. EXTREMITIES: No edema bilateral lower extremities. ASSESSMENT AND PLAN: This is a 76-year-old male patient with underlying medical history of Waldenstrom macroglobulinemia who follows with Dr. Gamble, paroxysmal atrial fibrillation, seizure disorder secondary to subdural hematoma in March 2016, T3 compression fractures, hypertension, dyslipidemia, retinal detachment, and allergic rhinitis admitted initially for acute encephalopathy. PROBLEMS: 1. Acute encephalopathy, likely multifactorial. Electroencephalogram (EEG) appreciated. Neurology consulted. Possibly related to Keppra. Keppra has been discontinued, as per neurology. Appreciate neurology's assistance. CT of the head and MRI appreciated showing underling subdural hematoma, unchanged from previous. Hematology/oncology consulted for Waldenstrom macroglobulinemia and recommended outpatient followup. No acute intervention at this time. The patient's mental status has been returning to baseline. Continue physical therapy. 2. Waldenstrom macroglobulinemia. Immunoglobulin, serum viscosity, beta-2 microglobulin studies have been appreciated. Dr. Gamble recommended outpatient followup. 3. Chronic leukopenia and anemia, currently stable. Follow up complete blood count (CBC). Transfuse as needed. 4. History of subdural hematoma with posttraumatic seizure. Initially was on Keppra, currently discontinued as per neurology given side effects. EEG has been appreciated. Imaging studies have been appreciated. 5. Hypokalemia. Supplement electrolytes. Followup with magnesium and potassium. 6. Diarrhea. The patient has watery bowel movements once a day. Continue to follow. Clostridium (C) difficile is patient continues to have worsening diarrhea. 7. Hypertension. Continue blood pressure medication as ordered. 8. History of paroxysmal atrial fibrillation. Currently in sinus rhythm. Avoid anticoagulation given patient with intracranial bleed. 9. Severe protein-calorie malnutrition. Daily weight. Ensure supplementation. Dietary consultation. Calorie count. Marinol for appetite stimulation. Option of feeding tube has been discussed with the family, currently refused. Family is aware that if patient continues to not consume enough calories the patient is likely to not do well and could potentially from it. 10. Nausea. Upper gastrointestinal (GI) series appreciated to be negative. Currently nausea resolved. Test has been negative. 11. Deep venous thrombosis (DVT) prophylaxis. Sequential compression device, given patient with subdural hematoma avoid pharmacological agent. DISPOSITION: Physical therapy, clinic improvement. The patient would like to return home, but possibly as per family open to short term rehabilitation prior to returning home. PROGNOSIS: Patient with multiple comorbidities, failure to thrive, severe protein-calorie malnutrition. Poor long-term prognosis.
[2016-05-21] MEDS: ALBUTEROL SULFATE 2.5 MG/0.5 ML INH NEB SOLN INH SCH ×4 (08:00→19:26)
[2016-05-21] MEDS: DRONABINOL 2.5 MG CAP (MARINOL) PO SCH ×4 (09:31→20:27)
[2016-05-21] MEDS: guaiFENesin ER 600 MG TAB PO SCH ×2 (09:32→20:27)
[2016-05-21] MEDS: MAGIC MOUTHWASH SUSPENSION BTL SSP SCH ×3 (09:32→17:51)
[2016-05-21] MEDS: DOCUSATE SODIUM 100 MG CAP PO SCH ×2 (09:32→20:28)
[2016-05-21] MEDS: amLODIPine 5 MG TAB PO SCH (09:32)
[2016-05-21] MEDS: POTASSIUM CHLORIDE 10 MEQ SR TABLET PO SCH (09:32)
[2016-05-21] MEDS: FLUTICASONE PROP 0.05% NASAL SPRAY 16 GM (FLONASE) SCH (09:33)
[2016-05-21 14:00] VITALS: BP 126/76
--- NOTE | 2016-05-21 19:00 | IPN ---
DATE: 05/21/2016 SUBJECTIVE: The patient seen and examined. No acute events overnight. Denies any fever or chills, chest pain, pressure, discomfort. The patient did have breakfast, but currently undergoing the calorie counts. The patient reported continues to have poor appetite, but will attempt to eat as much as he can. Denies chest pain, pressure or discomfort. Denies any fever or chills. Continues to be weak. VITAL SIGNS: Temperature 97.7, pulse 91, respirations 18, blood pressure 126/76, pulse oximetry 93% on room air. LABORATORY DATA: WBC 2.9, hemoglobin and hematocrit 8.2 over 24.7, platelets 151. Chemistry: Sodium 136, potassium 3.9, chloride 102, bicarbonate 26, BUN 19, creatinine 0.96. PHYSICAL EXAMINATION: GENERAL: The patient alert and oriented times three. In no acute distress. Weak. HEENT: Normocephalic, atraumatic. Moist mucous membranes. PULMONARY: Bilaterally clear to auscultation. No wheezes, rales, or rhonchi. CARDIAC: Regular rate and rhythm. Normal S1, S2. ABDOMEN: Soft, nontender, nondistended. Positive bowel sounds. EXTREMITIES: No edema bilateral lower extremities. ASSESSMENT AND PLAN: This is a 76-year-old male patient with underlying medical history of Waldenstrom macroglobulinemia, who follows with Dr. Gamble, paroxysmal atrial fibrillation, seizure disorder secondary to subdural hematoma in March 2016, T3 compression fracture, hypertension, dyslipidemia, retinal detachment, allergic rhinitis, admitted initially for acute encephalopathy. 1. Acute encephalopathy, likely multifactorial. Electroencephalogram (EEG) appreciated. Neurology consulted. Possibly related to Keppra. Keppra has been discontinued as per neurology. CT scan of the head and MRI appreciated. Underlying subdural hematoma unchanged from previous. Hematology/oncology has been consulted for Waldenstrom macroglobulinemia. Recommend outpatient followup. No acute intervention at this time. The patient's mental status has returned to baseline. Continue physical therapy. 2. Waldenstrom macroglobulinemia. Immunoglobulin serum viscosity, beta2 globulin study has been appreciated. Dr. Gamble recommended outpatient followup. 3. Chronic leukopenia and anemia, currently stable. Followup complete blood count (CBC). Transfuse as needed. 4. History of subdural hematoma with posttraumatic seizure. Initially the patient was on Keppra. Keppra was discontinued as per neurology, given side effect. EEG has been appreciated. Imaging studies appreciated. 5. Hypokalemia. Electrolytes have been supplemented. Continue to follow electrolytes. 6. Diarrhea only once. Patient not having multiple bouts of bowel movements. Continue to follow. Clostridium (C.) difficile if the patient's diarrhea worsens. 7. Hypertension. Continue blood pressure medication as ordered. 8. History of paroxysmal atrial fibrillation. Continues sinus. Avoid anticoagulation, given patient with intracranial bleed. 9. Severe protein-calorie malnutrition. Daily weights. Ensure supplementation. Dietary consultation. Calorie counts. Marinol for appetite stimulation. Option of tube feeding has been discussed with the patient and family. Currently refused. Family is aware that if the patient continues to not consume enough calories, the patient will likely not do well and with the potential for a very poor prognosis. 10. Nausea. Upper gastrointestinal (GI) series appreciated. Currently negative. Symptoms are resolved. Continue to follow. 11. Deep venous thrombosis (DVT) prophylaxis. Sequential compression devices. Avoid pharmacological agents given subdural hematoma. DISPOSITION: Physical therapy, clinical improvement. The patient would like to eventually return home, but family will need to arrange for 19/11 care. Possible short-term rehabilitation in between. PROGNOSIS: Patient with multiple comorbidities, failure to thrive, severe protein calorie malnutrition. Poor long-term prognosis.
[2016-05-21 22:00] VITALS: BP 120/64
[2016-05-22] MEDS: guaiFENesin DM LIQ 10ML UD PO PRN (03:04)
[2016-05-22 06:00] VITALS: BP 129/77
[2016-05-22] MEDS: BENZONATATE 100 MG CAP PO PRN (06:31)
[2016-05-22 07:02] LABS: MEAN CORPUSCULAR HEMOGLOBIN 32.6 pg (27.0-33.0); MEAN CORPUSCULAR HGB CONC 32.6 g/dl (32.0-36.5); MEAN CORPUSCULAR VOLUME 99.9 fl (80.0-96.0); RED CELL DISTRIBUTION WIDTH 17.1 % (11.5-14.5); WHITE BLOOD COUNT 2.7 K/mm3 (4.0-10.0)
[2016-05-22 07:15] LABS: ANION GAP 10 MEQ/L (8-16); BLOOD UREA NITROGEN 18 MG/DL (7-18); CARBON DIOXIDE LEVEL 24 MEQ/L (21-32); CHLORIDE LEVEL 103 MEQ/L (98-107); GLOMERULAR FILTRATION RATE > 60.0 (>42); GLUCOSE, FASTING 99 MG/DL (83-110); MAGNESIUM LEVEL 2.2 MG/DL (1.8-2.4); SODIUM LEVEL 137 MEQ/L (136-145)
[2016-05-22] MEDS: ALBUTEROL SULFATE 2.5 MG/0.5 ML INH NEB SOLN INH SCH ×4 (07:15→19:45)
[2016-05-22] MEDS: DRONABINOL 2.5 MG CAP (MARINOL) PO SCH ×4 (08:03→20:39)
[2016-05-22] MEDS: MAGIC MOUTHWASH SUSPENSION BTL SSP SCH ×3 (08:04→17:28)
[2016-05-22] MEDS: POTASSIUM CHLORIDE 10 MEQ SR TABLET PO SCH (08:04)
[2016-05-22] MEDS: DOCUSATE SODIUM 100 MG CAP PO SCH ×2 (08:04→20:39)
[2016-05-22] MEDS: guaiFENesin ER 600 MG TAB PO SCH ×2 (08:04→20:39)
[2016-05-22] MEDS: amLODIPine 5 MG TAB PO SCH (08:05)
[2016-05-22] MEDS: FLUTICASONE PROP 0.05% NASAL SPRAY 16 GM (FLONASE) SCH (08:46)
[2016-05-22] MEDS: ONDANSETRON 4 MG ORAL DISINTEGRATING TAB (S0181) PO PRN (10:03)
[2016-05-22 10:42] VITALS: BP 125/69
[2016-05-22 14:00] VITALS: BP 134/72
--- NOTE | 2016-05-22 15:14 | IPNPDOC ---
Assessment/Plan Date Seen The patient was seen on 05/22/16. Plan / VTE VTE Prophylaxis Ordered?: Yes Plan Plan Text Vasovagal episode with near syncope Patient was working with physical therapy this morning when he became nauseous and had an episode of emesis. Immediately following this event the patient was noted to be awake, alert, oriented and following all commands. He states that he did not lose consciousness, and that he became nauseous because he thinks he pushed himself too hard during physical therapy. No focal neurological deficits appreciated, patient denied any other acute complaints, vital signs noted to be stable We will continue to monitor her status Acute encephalopathy possibly multifactorial in etiology, resolved Possibly related to Keppra as the patient's symptoms have coincided since the initiation of the drug-this has been withheld EEG without epileptiform abnormalities noted. Underlying subdural hematoma, CT head and MRI of the brain noted-this appears to be chronic, with no acute changes Underlying Waldenstrom's macroglobulinemia progression-hematology/oncology has been consulted for this-->follow-up for the need of plasmapheresis as an outpatient Patient's mentation and appetite much improved and has returned to baseline here. Waldenstrom's macroglobulinemia. Immunoglobulin levels, serum viscosity, and beta-[address] Gamble of heme onc on board Chronic leukopenia and anemia, stable. No acute indication for red blood cell transfusion. 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 Appears to be stable on repeat CT Continue neurological checks Keppra has been discontinued at this time as it may have been causing the patient to be more lethargic EEG results as noted above Neurology on board Severe protein-calorie malnutrition. The patient has had a dietary consultation placed and calorie counts have been ordered. In addition the patient was ordered Marinol for appetite stimulation. At the current time, the patient and family is not interested in a feeding tube. However, the patient will be unable to go to a short-term rehabilitation facility if he is not adequately eating. I have discussed these concerns with the patient at the bedside today. Disposition-patient possibly for short-term rehabilitation versus home. Poor overall prognosis given the patient's comorbidities and current clinical condition. Subjective Review of Systems CC/HPI The patient is a 76-year-old male admitted with a reason for visit of Acute Encephalopathy. General: Denies: Chills, Night Sweats Constitutional: Denies: Chills, Fever Eyes: Denies: Pain, Vision change ENT: Denies: Ear Pain, Head Aches Skin: Denies: Lesions, Rash Pulmonary: Denies: Cough, Dyspnea Cardiovascular: Denies: Chest Pain, Palpitations Gastrointestinal: Reports: Nausea, Vomiting, Denies: Abdominal Pain Hematologic: Denies: Bleeding Excessively, Bruising Objective Physical Examination General Exam: Positive: Alert, Cooperative, No Acute Distress ENT Exam: Positive: Atraumatic, Mucous membr. moist/pink Chest Exam: Positive: Clear to auscultation, Normal air movement Heart Exam: Positive: Normal S1, Normal S2, Rate Normal Abdomen Exam: Positive: Soft, Negative: Tenderness Extremity Exam: Negative: Edema, Tenderness Vital Signs/I&O Vital Signs Date Time Temp Pulse Resp B/P Pulse Ox O2 Delivery O2 Flow Rate FiO2 05/22/16 10:42 96.7 83 16 125/69 93 Room Air I&O- Last 24 Hours up to 6 AM 05/22/16 06:00 Intake Total 380 ml Output Total 525 ml Balance -145 ml Laboratory Data Labs 24H Laboratory Tests 2 05/22/16 06:31: Anion Gap 10, Blood Urea Nitrogen 18, Creatinine 1.00, Sodium Level 137, Potassium Level 4.0, Chloride Level 103, Carbon Dioxide Level 24, Calcium Level 9.0, Glomerular Filtration Rate > 60.0, Magnesium Level 2.2 CBC/BMP Laboratory Tests 05/22/16 06:31 Calcium Level 9.0, Red Blood Count 2.46 L, Mean Corpuscular Volume 99.9 H, Mean Corpuscular Hemoglobin 32.6, Mean Corpuscular Hemoglobin Concent 32.6, Red Cell Distribution Width 17.1 H Microbiology Microbiology 05/15/16 Blood Culture - Final, Complete NO GROWTH AFTER 5 DAYS 05/15/16 Blood Culture - Final, Complete NO GROWTH AFTER 5 DAYS DENVER ARITA MD May 22, 2016 15:14
[2016-05-22 22:00] VITALS: BP 123/75
[2016-05-23 06:00] VITALS: BP_SYST 128; BP_SYST 135; BP_DIAS 63; BP_DIAS 77
[2016-05-23] MEDS: BENZONATATE 100 MG CAP PO PRN (06:07)
[2016-05-23] MEDS: ALBUTEROL SULFATE 2.5 MG/0.5 ML INH NEB SOLN INH SCH ×4 (07:32→19:51)
[2016-05-23] MEDS: POTASSIUM CHLORIDE 10 MEQ SR TABLET PO SCH (08:24)
[2016-05-23] MEDS: DOCUSATE SODIUM 100 MG CAP PO SCH ×2 (08:24→22:40)
[2016-05-23] MEDS: MAGIC MOUTHWASH SUSPENSION BTL SSP SCH ×3 (08:24→17:23)
[2016-05-23] MEDS: DRONABINOL 2.5 MG CAP (MARINOL) PO SCH ×4 (08:24→22:40)
[2016-05-23] MEDS: guaiFENesin ER 600 MG TAB PO SCH ×2 (08:24→22:40)
[2016-05-23] MEDS: amLODIPine 5 MG TAB PO SCH (08:25)
[2016-05-23] MEDS: FLUTICASONE PROP 0.05% NASAL SPRAY 16 GM (FLONASE) SCH (09:01)
--- NOTE | 2016-05-23 11:19 | IPNPDOC ---
Assessment/Plan Date Seen The patient was seen on 05/23/16. Plan / VTE VTE Prophylaxis Ordered?: Yes Plan Plan Text Acute encephalopathy possibly multifactorial in etiology, resolved Likely related to Keppra as the patient's symptoms have coincided since the initiation of the drug-this medication has been stopped EEG without epileptiform abnormalities noted. Underlying subdural hematoma, CT head and MRI of the brain noted-this appears to be chronic, with no acute changes Underlying Waldenstrom's macroglobulinemia progression-hematology/oncology has been consulted for this-->follow-up for the need of plasmapheresis as an outpatient Patient's mentation and appetite much improved and has returned to baseline here. Waldenstrom's macroglobulinemia. Immunoglobulin levels, serum viscosity, and beta-[address] Gamble of heme onc on board Chronic leukopenia and anemia, stable. No acute indication for red blood cell transfusion. 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 Appears to be stable on repeat CT Continue neurological checks Keppra has been discontinued at this time as it may have been causing the patient to be more lethargic EEG results as noted above Neurology on board Severe protein-calorie malnutrition. The patient has had a dietary consultation placed and calorie counts have been ordered. In addition the patient was ordered Marinol for appetite stimulation. At the current time, the patient and family is not interested in a feeding tube. Disposition-As per conversation with our case management team here, the patient' s family is trying to set up 24/7 care at home with hopes of follow-up with hospice as an outpatient sometime next week. Subjective Review of Systems CC/HPI The patient is a 76-year-old male admitted with a reason for visit of Acute Encephalopathy. General: Denies: Chills, Night Sweats Constitutional: Denies: Chills, Fever Eyes: Denies: Pain, Vision change ENT: Denies: Ear Pain, Head Aches Skin: Denies: Lesions, Rash Pulmonary: Denies: Cough, Dyspnea Cardiovascular: Denies: Chest Pain, Palpitations Gastrointestinal: Denies: Nausea, Vomiting Genitourinary: Denies: Dysuria, Frequency Hematologic: Denies: Bleeding Excessively, Bruising Objective Physical Examination General Exam: Positive: Alert, Cooperative, No Acute Distress ENT Exam: Positive: Atraumatic, Mucous membr. moist/pink Chest Exam: Positive: Clear to auscultation, Normal air movement Heart Exam: Positive: Normal S1, Normal S2, Rate Normal Abdomen Exam: Positive: Soft, Negative: Tenderness Extremity Exam: Negative: Edema, Tenderness Vital Signs/I&O Vital Signs Date Time Temp Pulse Resp B/P Pulse Ox O2 Delivery O2 Flow Rate FiO2 05/23/16 06:00 97.5 81 17 135/77 93 Room Air I&O- Last 24 Hours up to 6 AM 05/23/16 06:00 Intake Total 960 ml Output Total 275 ml Balance 685 ml Laboratory Data Microbiology Microbiology 05/15/16 Blood Culture - Final, Complete NO GROWTH AFTER 5 DAYS 05/15/16 Blood Culture - Final, Complete NO GROWTH AFTER 5 DAYS DENVER ARITA MD May 23, 2016 11:19
[2016-05-23 13:46] VITALS: BP 116/62
[2016-05-23 22:00] VITALS: BP 98/56
[2016-05-24 06:00] VITALS: BP 148/75
[2016-05-24 06:43] LABS: MEAN CORPUSCULAR HGB CONC 31.3 g/dl (32.0-36.5); RED CELL DISTRIBUTION WIDTH 18.6 % (11.5-14.5); WHITE BLOOD COUNT 2.8 K/mm3 (4.0-10.0)
[2016-05-24 06:44] LABS: ANION GAP 8 MEQ/L (8-16); BLOOD UREA NITROGEN 18 MG/DL (7-18); CALCIUM LEVEL 8.9 MG/DL (8.8-10.2); CARBON DIOXIDE LEVEL 27 MEQ/L (21-32); CHLORIDE LEVEL 102 MEQ/L (98-107); CREATININE FOR GFR 1.02 MG/DL (0.70-1.30); GLOMERULAR FILTRATION RATE > 60.0 (>42); GLUCOSE, FASTING 96 MG/DL (83-110); POTASSIUM SERUM 3.8 MEQ/L (3.5-5.1); SODIUM LEVEL 137 MEQ/L (136-145)
[2016-05-24] MEDS: ALBUTEROL SULFATE 2.5 MG/0.5 ML INH NEB SOLN INH SCH ×4 (07:14→19:33)
[2016-05-24] MEDS: MAGIC MOUTHWASH SUSPENSION BTL SSP SCH ×3 (07:30→17:31)
[2016-05-24] MEDS: FLUTICASONE PROP 0.05% NASAL SPRAY 16 GM (FLONASE) SCH (08:30)
[2016-05-24] MEDS: DOCUSATE SODIUM 100 MG CAP PO SCH ×2 (08:30→20:45)
[2016-05-24] MEDS: guaiFENesin ER 600 MG TAB PO SCH ×2 (08:30→20:45)
[2016-05-24] MEDS: DRONABINOL 2.5 MG CAP (MARINOL) PO SCH ×4 (08:30→20:45)
[2016-05-24] MEDS: amLODIPine 5 MG TAB PO SCH (08:30)
[2016-05-24] MEDS: POTASSIUM CHLORIDE 10 MEQ SR TABLET PO SCH (08:31)
[2016-05-24] MEDS: BENZONATATE 100 MG CAP PO PRN (09:26)
[2016-05-24] MEDS: guaiFENesin DM LIQ 10ML UD PO PRN (10:35)
--- NOTE | 2016-05-24 12:03 | IPNPDOC ---
Assessment/Plan Date Seen The patient was seen on 05/24/16. Plan / VTE VTE Prophylaxis Ordered?: Yes Plan Plan Text Acute encephalopathy possibly multifactorial in etiology, resolved Likely related to Keppra as the patient's symptoms have coincided since the initiation of the drug-this medication has been stopped EEG without epileptiform abnormalities noted. Underlying subdural hematoma, CT head and MRI of the brain noted-this appears to be chronic, with no acute changes Underlying Waldenstrom's macroglobulinemia progression-hematology/oncology has been consulted for this-->follow-up for the need of plasmapheresis as an outpatient Patient's mentation and appetite much improved and has returned to baseline here. Waldenstrom's macroglobulinemia. Immunoglobulin levels, serum viscosity, and beta-[address] Gamble of heme onc on board Chronic leukopenia and anemia, stable. No acute indication for red blood cell transfusion. 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 Appears to be stable on repeat CT Continue neurological checks Keppra has been discontinued at this time as it may have been causing the patient to be more lethargic EEG results as noted above Neurology on board Severe protein-calorie malnutrition. The patient has had a dietary consultation placed and calorie counts have been ordered. In addition the patient was ordered Marinol for appetite stimulation. At the current time, the patient and family is not interested in a feeding tube. Disposition-As per conversation with our case management team here, the patient' s family is trying to set up 24/7 care at home over the next 24 hours with hopes of follow-up with hospice as an outpatient sometime next week. Subjective Review of Systems CC/HPI The patient is a 76-year-old male admitted with a reason for visit of Acute Encephalopathy. General: Denies: Chills, Night Sweats Constitutional: Denies: Chills, Fever Eyes: Denies: Pain, Vision change ENT: Denies: Ear Pain, Head Aches Skin: Denies: Lesions, Rash Pulmonary: Denies: Cough, Dyspnea Cardiovascular: Denies: Chest Pain, Palpitations Gastrointestinal: Denies: Nausea, Vomiting Genitourinary: Denies: Dysuria, Frequency Hematologic: Denies: Bleeding Excessively, Bruising Objective Physical Examination General Exam: Positive: Alert, Cooperative, No Acute Distress ENT Exam: Positive: Atraumatic, Mucous membr. moist/pink Chest Exam: Positive: Clear to auscultation, Normal air movement Heart Exam: Positive: Normal S1, Normal S2, Rate Normal Abdomen Exam: Positive: Soft, Negative: Tenderness Extremity Exam: Negative: Edema, Tenderness Vital Signs/I&O Vital Signs Date Time Temp Pulse Resp B/P Pulse Ox O2 Delivery O2 Flow Rate FiO2 05/24/16 09:40 Room Air 05/24/16 08:30 77 148/75 05/24/16 06:00 97.1 18 95 I&O- Last 24 Hours up to 6 AM 05/24/16 06:00 Intake Total 940 ml Output Total 1045 ml Balance -105 ml Laboratory Data Labs 24H Laboratory Tests 2 05/24/16 06:17: Anion Gap 8, Blood Urea Nitrogen 18, Creatinine 1.02, Sodium Level 137, Potassium Level 3.8, Chloride Level 102, Carbon Dioxide Level 27, Calcium Level 8.9, Glomerular Filtration Rate > 60.0 CBC/BMP Laboratory Tests 05/24/16 06:17 Calcium Level 8.9, Red Blood Count 2.44 L, Mean Corpuscular Volume 102.0 H, Mean Corpuscular Hemoglobin 32.0, Mean Corpuscular Hemoglobin Concent 31.3 L, Red Cell Distribution Width 18.6 H Microbiology Microbiology 05/15/16 Blood Culture - Final, Complete NO GROWTH AFTER 5 DAYS 05/15/16 Blood Culture - Final, Complete NO GROWTH AFTER 5 DAYS DENVER ARITA MD May 24, 2016 12:03
[2016-05-24 13:41] VITALS: BP 131/74
[2016-05-24] MEDS: SODIUM CHLORIDE NASAL 0.65% SPRAY BTL (OCEAN) PRN (20:47)
[2016-05-24] MEDS: ANALGESIC BALM CRM 120 GM TOP PRN (20:47)
[2016-05-24 22:00] VITALS: BP 109/57
[2016-05-25 03:40] VITALS: BP 134/74
[2016-05-25 06:00] VITALS: BP 133/67
[2016-05-25] MEDS: ALBUTEROL SULFATE 2.5 MG/0.5 ML INH NEB SOLN INH SCH ×2 (07:54→11:20)
[2016-05-25] MEDS: guaiFENesin ER 600 MG TAB PO SCH (08:53)
[2016-05-25] MEDS: DRONABINOL 2.5 MG CAP (MARINOL) PO SCH ×2 (08:54→12:00)
[2016-05-25] MEDS: POTASSIUM CHLORIDE 10 MEQ SR TABLET PO SCH (08:54)
[2016-05-25] MEDS: FLUTICASONE PROP 0.05% NASAL SPRAY 16 GM (FLONASE) SCH (08:55)
[2016-05-25] MEDS: MAGIC MOUTHWASH SUSPENSION BTL SSP SCH ×2 (08:55→12:00)
[2016-05-25] MEDS: DOCUSATE SODIUM 100 MG CAP PO SCH (08:55)
[2016-05-25 08:59] VITALS: BP 120/69
[2016-05-25] MEDS: amLODIPine 5 MG TAB PO SCH (08:59)
[2016-05-25] MEDS ORDERED: ZOFR20TA PO (09:30)
[2016-05-25] MEDS ORDERED: BENZ100C5 PO (09:30)
[2016-05-25] MEDS ORDERED: MARI2.5C PO (09:30)
--- NOTE | 2016-05-25 17:03 | DS.PDOC ---
Discharge Summary General Date of Admission May 10, 2016 at 12:25 Date of Discharge May 25, 2016 at 12:09 Discharge Summary PROCEDURES PERFORMED DURING STAY: None. COMPLICATIONS/CHIEF COMPLAINT: Acute Encephalopathy ADMISSION DIAGNOSES: 1. . Alteration in mental status 2. . Severe protein-calorie malnutrition 3. . DISCHARGE DIAGNOSES: 1. . Alteration in mental status 2. . Severe protein-calorie malnutrition 3. . HISTORY OF PRESENT ILLNESS: 76-year-old male with past medical history of Waldenstrom's macroglobulinemia with a history of plasmapheresis for hyperviscosity and chemotherapy, paroxysmal atrial fibrillation, seizures, subdural hematoma in March 2016, hypertension, dyslipidemia, seasonal allergic rhinitis presented to [facility] on 05/10 from the nursing facility with a chief complaint of alteration in mental status. Of note, the patient did have a subdural bleed on 04/21 following a fall , and was placed on Keppra for seizure prophylaxis purposes. The patient was subsequently sent to the nursing facility for further rehabilitation. However, during his stay in the nursing facility the patient was noted to have an alteration in mental status. The patient was sent to the ER for further evaluation and management, where a repeat CT scan of the head revealed chronic stable changes from the previous subdural hematoma. The patient was admitted to the hospitalist service for further workup and evaluation of the patient's alteration in mental status. During the patient's hospitalization here and an EEG was done and this did not reveal any active epileptiform activity. In addition, the patient's Keppra was discontinued as his symptoms of alteration in mental status coincided when the Keppra medication was begun. In addition, neurology also saw the patient here in the hospital and recommended discontinuing antiepileptic drug therapy. Dr. Gamble of oncology also saw the patient here in consultation and recommended a follow-up as an outpatient for further treatment of the patient's underlying Waldenstrom Macroglobulinemia. The patient's mental status improved here in the hospital back to its baseline. However, the patient was noted to be increasingly weak and deconditioned. In addition, the patient also had failure to thrive with severe protein calorie malnutrition, a PEG tube was discussed with the patient's family and the patient and they declined this option. Given the patient's poor overall prognosis due to his multiple comorbidities and current clinical condition the patient's family and the patient decided to go home with 19/11 care and follow-up as an outpatient with hospice. DISCHARGE MEDICATIONS: Please see below. ALLERGIES: Please see below. PHYSICAL EXAMINATION ON DISCHARGE: VITAL SIGNS: Please see below. General Exam: Positive: Alert, Cooperative, No Acute Distress ENT Exam: Positive: Atraumatic, Mucous membr. moist/pink Chest Exam: Positive: Clear to auscultation, Normal air movement Heart Exam: Positive: Normal S1, Normal S2, Rate Normal Abdomen Exam: Positive: Soft, Negative: Tenderness Extremity Exam: Negative: Edema, Tenderness LABORATORY DATA: Please see below. IMAGING: CT HEAD WITHOUT CONTRAST: HISTORY: Subdural hematoma. Areas of decreased attenuation are present in the periventricular white matter. This represents small vessel ischemic disease. There is no intraparenchymal hemorrhage or mass. The ventricular system and cortical sulci are dilated consistent with minimal volume loss. Cavum septi pellucidi and vergae are present. A chronic subdural hematoma 1 cm in width is present over the right cerebral hemisphere. A very small amount of re-bleeding is present. There is mass effect with minimal midline shift to the left. There is no fracture. The visualized sinuses are clear. IMPRESSION: 1. Small vessel ischemic disease. 2. Minimal volume loss. 3. There is a 1 cm chronic subdural hematoma over the right cerebral hemisphere with minimal midline shift to the left. VTE Prophylaxis ordered?: Yes DISCHARGE CONDITION: Poor long-term prognosis DISPOSITION: 01 Home, Self-Care ACTIVITY: As tolerated DIET: 2 g low sodium diet ITEMS TO FOLLOWUP ON OUTPATIENT: 1. . Follow-up with hospice as an outpatient 2. . Follow-up with primary care physician within one to 2 weeks 3. . TIME SPENT ON DISCHARGE: Greater than 30 minutes. Vital Signs/I&Os Vital Signs Date Time Temp Pulse Resp B/P Pulse Ox O2 Delivery O2 Flow Rate FiO2 05/25/16 10:44 Room Air 05/25/16 08:59 88 120/69 05/25/16 06:00 97.3 18 94 I&O- Last 24 Hours up to 6 AM 05/25/16 06:00 Intake Total 460 ml Output Total 100 ml Balance 360 ml Microbiology Microbiology 05/15/16 Blood Culture - Final, Complete NO GROWTH AFTER 5 DAYS 05/15/16 Blood Culture - Final, Complete NO GROWTH AFTER 5 DAYS Medications Scheduled (Flonase Allergy Relief) 50 Mcg/Act Spr 1 SPRAY NA DAILY Albuterol Sulfate (Albuterol Sulfate) 2.5 Mg/3 Ml Nebu 2.5 MG INH QID Amlodipine Besylate (Amlodipine Besylate) 5 Mg Tab 5 MG PO DAILY Docusate Sodium (Colace) 100 Mg Cap 100 MG PO BID Dronabinol (Marinol) 2.5 Mg Cap 2.5 MG PO ACHS Potassium Chloride (Klor-Con M20) 20 Meq Tabcr 20 MEQ PO DAILY Scheduled PRN Acetaminophen (Acetaminophen) 325 Mg Tab 650 MG PO Q4H PRN PRN PAIN / FEVER Benzonatate (Benzonatate) 200 Mg Cap 200 MG PO TID PRN PRN COUGH Benzonatate (Benzonatate) 100 Mg Cap 100 MG PO TIDP PRN PRN COU Guaifenesin/Dextromethorphan (Guaifenesin-Dm 100-10 mg/5Ml) 1 Syp Syp 10 ML PO Q4H PRN PRN COUGH Ondansetron HCl (Zofran) 4 Mg Tab 4 MG PO Q6HP PRN PRN VOMITING Allergies Coded Allergies: ENVIROMENTAL (Verified Allergy, Unknown, 01/11/09) DENVER ARITA MD May 25, 2016 17:02
== END 2016-05-25 12:09 | disposition home or self-care (01) | DRG 70 ==
LOC: M ED 09:48 → M ED INP 12:25 → M PCU 20:00 → M MSPAV 05-14 14:39 → M OR 05-21 09:56 → M MSPAV 05-21 09:57
PROVIDERS: ADMIT General Practice; ATTEND Internal Medicine
DX: G93.40 Encephalopathy, unspecified (principal); E43 Unspecified severe protein-calorie malnutrition; B37.0 Candidal stomatitis; I69.198 Other sequelae of nontraumatic intracerebral hemorrhage; C88.0 Waldenstrom macroglobulinemia; Z66 Do not resuscitate; I48.0 Paroxysmal atrial fibrillation; I10 Essential (primary) hypertension; R56.9 Unspecified convulsions; E78.00 Pure hypercholesterolemia, unspecified; E78.5 Hyperlipidemia, unspecified; Z79.899 Other long term (current) drug therapy; D64.9 Anemia, unspecified; E87.6 Hypokalemia; T42.75XA Adverse effect of unspecified antiepileptic and sedative-hypnotic drugs, initial encounter